=== PATIENT | female | born 1950 | race Caucasian/White ===

== ENCOUNTER → 2017-11-04 | Outpatient (CLI) | payer OTHER ==
[~2017-11-04] MED LIST: ALBU90OI; AZIT250 PO; CLAR500 PO; CLOT10; FLUSAL1005; FLUT.05NI; GUAI100SY; HYDACE5 PO; LITH300C; PRED10 PO; PRED20 PO; PSEU30; RXHYDACE PO; THIO2 PO; TRAZ50
== END ==
LOC: PLD 11:14 → LAB SHORT 11:14
DX: N60.89 Other benign mammary dysplasias of unspecified breast (principal)
CPT/HCPCS: 88304

== ENCOUNTER → 2018-07-18 | Outpatient (CLI) | payer OTHER ==
[2018-07-18 12:11] LABS: BODY FLUID RBC 0.008 (0-0); RBC Count, Synovial Fluid 8000 /mm3 (0-0); WBC Count, Synovial Fluid 343 /mm3 (0-180)
[2018-07-18 12:25] LABS: Body Fluid Crystals NEG (NEGATIVE)
[2018-07-18 12:30] LABS: Color, Synovial Fluid Dark Yellow (None-P Yel)
[2018-07-18 12:31] LABS: Appearance, Synovial Fluid Cloudy (Clear)
[2018-07-18 13:11] LABS: Eos, Synovial Fluid 1 % (0-2); Lymphs, Synovial Fluid 31 % (0-15); Monocytes/Macrophages, Synovia 61 % (0-65); Neutrophils, Synovial Fluid 7 % (0-24)
== END | disposition home or self-care (01) ==
LOC: LAB 11:32 → LAB SHORT 11:32
PROVIDERS: Orthopaedic Surgery
DX: M25.461 Effusion, right knee (principal)
CPT/HCPCS: 87070; 87075; 87205; 89051; 89060

== ENCOUNTER 2018-09-11 07:36 | Inpatient (IN) | payer OTHER ==
[~2018-09-11] VITALS: Ht 172.7 cm; Wt 78.3 kg
[~2018-09-11 07:36] MED LIST changes: -ALBU90OI; +ALBU90OI INH; +B Complex #11 EACH PO; +CALCIUM WITH V1 EACH PO; +DIAZ10 PO; +FLUT1DIS2 INH; +Hydrocodone-Ap1 EA23 PO; +LIDO5TO TOP; -LITH300C; +LITH300C PO; +MELO7.5 PO; +Pravachol40 MG PO; +QUET25 PO; +THERA1 EACH PO; +TIOT18 INH; -TRAZ50; +TRAZ50 PO
--- NOTE | 2018-09-11 09:27 | NUR ---
History, Chart, Medications and Allergies reviewed before start of procedure. Patient confirms NPO status and agrees with scheduled surgery. Patient reports completing Chlorhexadine shower X2 prior to admission to hospital.Surgical site prepped with 2% Chlorhexidine cloth wipe.
--- NOTE | 2018-09-11 10:46 | NUR ---
09/11/18 1046 Alida Potter PT VOIDED PRIOR TO COMING TO THE OR
--- NOTE | 2018-09-11 15:15 | NUR ---
PT ARRIVED TO THE ROOM AT APPROXIMATELY 1310. PT ALERT AND ORIENTED UPON ARRIVAL TO ROOM. FAMILY AT THE BEDSIDE. PT DENIED PAIN, NAUSEA AND VOMITING. PT UNABLE TO MOVE OR FEEL HER TOES. VSS. WILL CONTINUE TO MONITOR.
--- NOTE | 2018-09-11 15:24 | NUR ---
SUICIDE SCREENING PT REPORTS SHE HAS WANTED TO GO TO SLEEP AND NOT WAKE UP RELATED TO PAIN. SHE DENIES SUICIDAL IDEATION.
--- NOTE | 2018-09-11 17:38 | NUR ---
SHIFT SUMMARY PAIN HAS BEEN MANAGED WITH PO AND IV PAIN MEDICATION. PT IS A 1 ASSIST WHEN OOB. SHE WAS ABLE TO WORK WITH THERAPY THIS SHIFT. VSS. WILL MONITOR UNTIL REPORT TO ONCOMING RN.
--- NOTE | 2018-09-11 18:55 | NUR ---
recvd report from previous shift rn adonis, pt sitting up in chair, a/0 x 4, pleasant/cooperative, slight tremor which is pt's baseline
--- NOTE | 2018-09-12 05:13 | NUR ---
shift summary: vss, no acute changes. pt reports mild anxiety, medicated per mar with report of relaxation. pt reports pain controlled per mar at 09/10 on reassessment. pt voided >600 ml clear yellow urine. pt tolerated PO intake with no n/v. pt up to bathroom x 2, ambulated in hallway x 1. operative limb with good cap refill/warmth/color. aquacel and shine wrap c/d/i, no drainage or shadowing. cryotherapy in place while pt in chair or bed. pt educated per schedule of day shift activities and expectations prior to discharge, states understanding.
[2018-09-12 06:24] LABS: Anion Gap 5 mmol/L (6-16); BASOPHILS ABSOLUTE AUTO 0.02 K/mm3 (0.00-0.23); BASOPHILS PERCENT AUTO 0 % (0-2); Blood Urea Nitrogen 14 mg/dL (8-24); CO2, Blood 26 mmol/L (21-32); Calcium, Blood 9.2 mg/dL (8.5-10.1); Chloride, Blood 108 mmol/L (98-108); Creatinine, Blood 0.64 mg/dL (0.40-1.00); EOSINOPHILS ABSOLUTE AUTO 0.07 K/mm3 (0.00-0.68); EOSINOPHILS PERCENT AUTO 1 % (0-6); Glomerular Filtration Rate >60 (60-); Glucose, Blood 122 mg/dL (70-99); Hematocrit 35.3 % (33.0-51.0); Hemoglobin 11.1 g/dL (11.5-16.0); IMMATURE GRAN ABSOLUTE AUTO 0.03 K/mm3 (0.00-0.10); IMMATURE GRAN PERCENT AUTO 0 % (0-1); LYMPHOCYTES ABSOLUTE AUTO 0.48 K/mm3 (0.84-5.20); LYMPHOCYTES PERCENT AUTO 6 % (21-46); MONOCYTES ABSOLUTE AUTO 0.84 K/mm3 (0.16-1.47); MONOCYTES PERCENT AUTO 10 % (4-13); Mean Corpuscular HGB 30.3 pg (26.0-34.0); Mean Corpuscular HGB Conc 31.4 g/dL (31.5-36.5); Mean Corpuscular Volume 96 fL (80-100); Mean Platelet Volume 9.6 fL (9.1-12.4); NEUTROPHILS ABSOLUTE AUTO 7.17 K/mm3 (1.96-9.15); NEUTROPHILS PERCENT AUTO 83 % (41-73); Platelet Count 269 K/mm3 (150-400); Potassium, Blood 4.2 mmol/L (3.5-5.5); RDW Coefficient Variation 12.5 % (11.7-14.2); RDW Standard Deviation 44.5 fL (35.1-46.3); Red Blood Cell Count 3.66 M/mm3 (3.80-5.20); Sodium, Blood 139 mmol/L (136-145); White Blood Cell Count 8.61 K/mm3 (4.00-11.30)
--- NOTE | 2018-09-12 17:26 | NUR ---
PATIENT TRANSFERRED TO [facility] VIA [facility]; REPORT CALLED TO SHADY GRIFFIN AT THIS TIME. FAMILY AWARE.
== END 2018-09-12 17:05 | DRG 470 ==
LOC: ORSCMMR 07:36 → ORD 10:00 → ORSCMMR 10:00 → SURS 13:08 → ORSCMMR 09-12 12:29 → SURS 09-12 12:29
PROVIDERS: ADMIT Orthopaedic Surgery
PROC: 0SRC0J9 Replacement of Right Knee Joint with Synthetic Substitute, Cemented, Open Approach (ICD-10-PCS; principal; 2018-09-12)
DX: M17.11 Unilateral primary osteoarthritis, right knee (principal); Z85.118 Personal history of other malignant neoplasm of bronchus and lung; I10 Essential (primary) hypertension; E78.5 Hyperlipidemia, unspecified; J43.9 Emphysema, unspecified; F31.9 Bipolar disorder, unspecified; Z87.891 Personal history of nicotine dependence
CPT/HCPCS: 36415; 73560-RT; 80048; 85025; 86850; 86900; 86901; 88300; 97110; 97116; 97161; 97530; C1776; J0171; J1100; J1170; J1885; J2250; J2370; J2405; J2704; J2795; J3010; J7120

== ENCOUNTER → 2019-05-05 | Outpatient (CLI) | payer OTHER ==
[2019-05-05 14:59] LABS: Stool Occult Bld Immuno 1 Negative (NEGATIVE); Stool Occult Bld Immuno 2 Negative (NEGATIVE)
== END | disposition home or self-care (01) ==
LOC: LAB 10:44 → LAB SHORT 10:44
PROVIDERS: Internal Medicine Gastroenterology
DX: Z12.11 Encounter for screening for malignant neoplasm of colon (principal)
CPT/HCPCS: G0328

== ENCOUNTER 2019-05-27 22:19 | Emergency (ER) | payer OTHER ==
[~2019-05-27] VITALS: Ht 172.7 cm; Wt 86.6 kg
== END 2019-05-27 23:50 | disposition home or self-care (01) ==
LOC: ER 22:19
DX: S80.01XA Contusion of right knee, initial encounter (principal); J45.909 Unspecified asthma, uncomplicated; Z87.891 Personal history of nicotine dependence; Z79.899 Other long term (current) drug therapy; Z79.51 Long term (current) use of inhaled steroids; X58.XXXA Exposure to other specified factors, initial encounter
CPT/HCPCS: 73562-RT; 99283-25; A9270

== ENCOUNTER 2020-02-22 10:26 | Emergency (ER) | payer OTHER ==
[~2020-02-22] VITALS: Ht 172.7 cm; Wt 79.4 kg
== END 2020-02-22 14:09 | disposition home or self-care (01) ==
LOC: ER 10:26
DX: S09.90XA Unspecified injury of head, initial encounter (principal); M25.551 Pain in right hip; J45.909 Unspecified asthma, uncomplicated; Z88.0 Allergy status to penicillin; Z88.8 Allergy status to other drugs, medicaments and biological substances; Z88.2 Allergy status to sulfonamides; Z79.899 Other long term (current) drug therapy; Z87.891 Personal history of nicotine dependence; W18.30XA Fall on same level, unspecified, initial encounter
CPT/HCPCS: 70450; 99284-25

== ENCOUNTER 2020-03-04 21:59 | Emergency (ER) | payer OTHER ==
[~2020-03-04] VITALS: Ht 172.7 cm; Wt 81.7 kg
[2020-03-04] MEDS ORDERED: Norco 5-325 Ta1 EACH PO (22:39)
== END 2020-03-04 22:38 | disposition home or self-care (01) ==
LOC: ER 21:59
DX: M53.3 Sacrococcygeal disorders, not elsewhere classified (principal); J45.909 Unspecified asthma, uncomplicated; Z88.0 Allergy status to penicillin; Z88.2 Allergy status to sulfonamides; Z88.8 Allergy status to other drugs, medicaments and biological substances; Z79.899 Other long term (current) drug therapy; Z87.891 Personal history of nicotine dependence
CPT/HCPCS: 99281

== ENCOUNTER → 2020-07-22 | Outpatient (CLI) | payer OTHER ==
[~2020-07-22] MED LIST changes: +Norco 5-325 Ta1 EACH PO
[2020-07-22 06:26] LABS: Source, Urine Clean Catch
[2020-07-22 09:33] LABS: Appearance, Urine Clear (Clear); Bilirubin, Urine Neg (Neg); Blood, Urine Neg (Neg); Color, Urine Yellow (P-Yellow); Glucose Qualitative, Urine Neg (Neg); Ketones, Urine Neg (Neg); Leukocyte Esterase, Urine 1+ (Neg); Nitrite, Urine Neg (Neg); Protein, Urine Neg (Neg); Urobilinogen, Urine NORM (Normal)
[2020-07-22 09:54] LABS: Bacteria Rare /hpf; Red Blood Cells, Urine 0-2 /hpf (0-2); Squamous Epithelial Cells Rare /hpf (Few)
== END ==
LOC: LAB SHORT 06:25 → OLS 06:25 → LAB FUT 07-21 18:40
PROVIDERS: Family Medicine
DX: N39.0 Urinary tract infection, site not specified (principal); Z88.0 Allergy status to penicillin; Z88.2 Allergy status to sulfonamides; Z88.8 Allergy status to other drugs, medicaments and biological substances
CPT/HCPCS: 81001; 87077; 87086; 87186

== ENCOUNTER → 2020-12-27 | Outpatient (CLI) | payer OTHER | END | disposition home or self-care (01) | LOC: LAB SHORT 08:14 → LAB 08:14 | DX: L08.89 Other specified local infections of the skin and subcutaneous tissue (principal) | CPT/HCPCS: 88305; 88312 ==

== ENCOUNTER → 2021-06-08 | Outpatient (CLI) | payer OTHER ==
[2021-06-08 16:43] LABS: Appearance, Urine Clear (Clear); Bilirubin, Urine Neg (Neg); Blood, Urine Neg (Neg); Color, Urine Yellow (P-Yellow); Glucose Qualitative, Urine Neg (Neg); Ketones, Urine Neg (Neg); Leukocyte Esterase, Urine 1+ (Neg); Nitrite, Urine Neg (Neg); Protein, Urine Neg (Neg); Urobilinogen, Urine NORM (Normal)
[2021-06-08 17:04] LABS: Bacteria Rare /hpf; Mucus Light (0-Heavy); Red Blood Cells, Urine 0-2 /hpf (0-2); Squamous Epithelial Cells Rare /hpf (Few)
== END | disposition home or self-care (01) ==
LOC: LAB SHORT 09:00
PROVIDERS: Family Medicine
DX: R79.9 Abnormal finding of blood chemistry, unspecified (principal)
CPT/HCPCS: 81001; 87086

== ENCOUNTER 2021-08-11 20:05 | Emergency (ER) | payer OTHER ==
[~2021-08-11] VITALS: Ht 172.7 cm; Wt 65.3 kg
[2021-08-11] MEDS ORDERED: DOXY100 PO (22:55)
== END 2021-08-11 23:13 | disposition home or self-care (01) ==
LOC: ER 20:05
DX: L03.221 Cellulitis of neck (principal); L02.11 Cutaneous abscess of neck; Z88.0 Allergy status to penicillin; Z88.2 Allergy status to sulfonamides; Z88.8 Allergy status to other drugs, medicaments and biological substances; Z79.899 Other long term (current) drug therapy; J45.909 Unspecified asthma, uncomplicated; Z87.891 Personal history of nicotine dependence; Z85.118 Personal history of other malignant neoplasm of bronchus and lung
CPT/HCPCS: 76536; 99283-25; A9270

== ENCOUNTER → 2021-08-16 | Outpatient (CLI) | payer OTHER ==
[~2021-08-16] MED LIST changes: +DOXY100 PO
== END | disposition home or self-care (01) ==
LOC: LAB SHORT 10:30
DX: L72.3 Sebaceous cyst (principal)
CPT/HCPCS: 87070; 87205

== ENCOUNTER → 2021-08-24 | Outpatient (CLI) | payer OTHER ==
[~2021-08-24] MED LIST changes: +Acetaminophen325 M1 PO; +LOPE2C PO; +ONDA4ODT MM; +VANCOCIN HCL250 MG PO; +VISBIOME 112.51 EACH PO
== END | disposition home or self-care (01) ==
LOC: LAB 09:30 → LAB SHORT 09:30
DX: L72.3 Sebaceous cyst (principal)
CPT/HCPCS: 87070; 87205

== ENCOUNTER 2021-08-26 23:05 | Observation (INO) | payer OTHER ==
[~2021-08-26] VITALS: Ht 162.6 cm; Wt 58.5 kg
[~2021-08-26 23:05] MED LIST changes: -Acetaminophen325 M1 PO; -LOPE2C PO; -ONDA4ODT MM; -VANCOCIN HCL250 MG PO; -VISBIOME 112.51 EACH PO
[2021-08-27 01:16] LABS: Hematocrit 36.7 % (33.0-51.0); Hemoglobin 12.1 g/dL (11.5-16.0); Mean Corpuscular HGB 30.6 pg (26.0-34.0); Mean Corpuscular Volume 93 fL (80-100); Mean Platelet Volume 11.4 fL (9.1-12.4); Platelet Count 253 K/mm3 (150-400); RDW Coefficient Variation 12.2 % (11.7-14.2); RDW Standard Deviation 41.3 fL (35.1-46.3); Red Blood Cell Count 3.96 M/mm3 (3.80-5.20); White Blood Cell Count 14.07 K/mm3 (4.00-11.30)
[2021-08-27 01:28] LABS: Alanine Aminotransfer (ALT/SGP 50 U/L (12-78); Albumin, Blood 3.8 g/dL (3.4-5.0); Albumin/Globulin Ratio 1.3 (0.8-1.8); Alk Phos 87 U/L (50-136); Anion Gap 4 mmol/L (6-16); Aspartate Aminotrans (AST/SGOT 26 U/L (12-37); Bilirubin, Total 0.4 mg/dL (0.1-1.0); Blood Urea Nitrogen 21 mg/dL (8-24); Bun/Creatinine Ratio 35.2 (12.0-20.0); CO2, Blood 27 mmol/L (21-32); Calcium, Blood 9.4 mg/dL (8.5-10.1); Chloride, Blood 108 mmol/L (98-108); Glomerular Filtration Rate >60 (60-); Glucose, Blood 125 mg/dL (70-99); Potassium, Blood 4.3 mmol/L (3.5-5.5); Sodium, Blood 139 mmol/L (136-145); Total Protein, Blood 6.8 g/dL (6.4-8.2)
[2021-08-27 01:35] LABS: Source, Urine Clean Catch
[2021-08-27 01:44] LABS: Bilirubin, Urine Neg (Neg); Blood, Urine 2+ (Neg); Glucose Qualitative, Urine Neg (Neg); Ketones, Urine Neg (Neg); Leukocyte Esterase, Urine 3+ (Neg); Nitrite, Urine Neg (Neg); Protein, Urine Neg (Neg); Urobilinogen, Urine NORM (Normal)
[2021-08-27 01:47] LABS: BAND PERCENT MAN 12 % (0-8); BASOPHILS PERCENT MAN 0 % (0-2); EOSINOPHILS ABSOLUTE MAN 0.14 K/mm3 (0.00-0.68); EOSINOPHILS PERCENT MAN 1 % (0-6); LYMPHOCYTES ABSOLUTE MAN 0.28 K/mm3 (0.84-5.20); LYMPHOCYTES PERCENT MAN 2 % (21-46); MONOCYTES PERCENT MAN 10 % (4-13); NEUTROPHILS ABSOLUTE MAN 12.24 K/mm3 (1.96-9.15); SEG NEUTROPHILS PERCENT MAN 75 % (41-73); TOTAL CELLS COUNTED 100
[2021-08-27 01:50] LABS: Appearance, Urine Hazy (Clear); Color, Urine Yellow (P-Yellow)
[2021-08-27 01:51] LABS: Amorphous Light (0-Heavy); Bacteria Many /hpf; Red Blood Cells, Urine 0-2 /hpf (0-2); Squamous Epithelial Cells Not Seen /hpf (Few)
[2021-08-27 03:49] LABS: BASOPHILS ABSOLUTE AUTO 0.03 K/mm3 (0.00-0.23); BASOPHILS PERCENT AUTO 0 % (0-2); EOSINOPHILS ABSOLUTE AUTO 0.01 K/mm3 (0.00-0.68); EOSINOPHILS PERCENT AUTO 0 % (0-6); Hematocrit 35.2 % (33.0-51.0); Hemoglobin 11.6 g/dL (11.5-16.0); IMMATURE GRAN ABSOLUTE AUTO 0.05 K/mm3 (0.00-0.10); IMMATURE GRAN PERCENT AUTO 0 % (0-1); LYMPHOCYTES ABSOLUTE AUTO 0.47 K/mm3 (0.84-5.20); LYMPHOCYTES PERCENT AUTO 3 % (21-46); MONOCYTES ABSOLUTE AUTO 1.11 K/mm3 (0.16-1.47); MONOCYTES PERCENT AUTO 8 % (4-13); Mean Corpuscular HGB 30.5 pg (26.0-34.0); Mean Corpuscular Volume 93 fL (80-100); Mean Platelet Volume 10.9 fL (9.1-12.4); NEUTROPHILS ABSOLUTE AUTO 12.99 K/mm3 (1.96-9.15); NEUTROPHILS PERCENT AUTO 89 % (41-73); Platelet Count 224 K/mm3 (150-400); RDW Coefficient Variation 12.5 % (11.7-14.2); RDW Standard Deviation 42.9 fL (35.1-46.3); White Blood Cell Count 14.66 K/mm3 (4.00-11.30)
--- NOTE | 2021-08-27 06:39 | NUR ---
SHIFT SUMMARY PT WAS A NEW ADMIT DURING THE NIGHT, ARRIVING ON THE FLOOR AT 0420. SHE WAS ADMITTED FOR A UTI AND WEAKNESS WITH PT REPORTING MULTIPLE GLF AT HOME PRIOR TO ADMISSION. SHE IS A&O X 3, 1PA TO THE [facility]. VITAL SIGNS STABLE. NO C/O ACUTE PAIN, NAUSEA OR SOB. NO ACUTE CHANGES IN PT CONDITION NOTED SINCE ADMISSION. WILL CONTINUE TO MONITOR AND TREAT PER EMAR UNTIL HAND OFF TO DAY SHIFT RN.
[2021-08-27 19:22] LABS: Adenovirus F 40/41 Not Detected (NOT DETECT); Astrovirus Not Detected (NOT DETECT); Campylobacter Sp Not Detected (NOT DETECT); Cryptosporidium Not Detected (NOT DETECT); Cyclospora Cayetanensis Not Detected (NOT DETECT); E. Coli O157 Not Detected (NOT DETECT); Entamoeba Histolytica Not Detected (NOT DETECT); Enteroaggregative E. coli-EAEC Not Detected (NOT DETECT); Enteropathogenic E. coli-EPEC Not Detected (NOT DETECT); Enterotoxigenic E. coli-ETEC Not Detected (NOT DETECT); Giardia Lamblia Not Detected (NOT DETECT); Norovirus GI/GII Not Detected (NOT DETECT); Plesiomonas Shigelloides Not Detected (NOT DETECT); Rotavirus A Not Detected (NOT DETECT); Salmonella Sp Not Detected (NOT DETECT); Sapovirus Not Detected (NOT DETECT); Shiga Toxin-prod E. coli-STEC Not Detected (NOT DETECT); Shigella/Enteroin E. coli-EIEC Not Detected (NOT DETECT); Vibrio Cholerae Not Detected (NOT DETECT); Vibrio Sp Not Detected (NOT DETECT); Yersinia Enterocolitica Not Detected (NOT DETECT)
[2021-08-28 05:18] LABS: BASOPHILS ABSOLUTE AUTO 0.04 K/mm3 (0.00-0.23); BASOPHILS PERCENT AUTO 0 % (0-2); EOSINOPHILS ABSOLUTE AUTO 0.07 K/mm3 (0.00-0.68); EOSINOPHILS PERCENT AUTO 1 % (0-6); Hematocrit 34.2 % (33.0-51.0); IMMATURE GRAN ABSOLUTE AUTO 0.05 K/mm3 (0.00-0.10); IMMATURE GRAN PERCENT AUTO 0 % (0-1); LYMPHOCYTES ABSOLUTE AUTO 1.26 K/mm3 (0.84-5.20); LYMPHOCYTES PERCENT AUTO 11 % (21-46); MONOCYTES ABSOLUTE AUTO 1.45 K/mm3 (0.16-1.47); MONOCYTES PERCENT AUTO 13 % (4-13); Mean Corpuscular HGB 30.2 pg (26.0-34.0); Mean Corpuscular HGB Conc 32.2 g/dL (31.5-36.5); Mean Corpuscular Volume 94 fL (80-100); Mean Platelet Volume 10.6 fL (9.1-12.4); NEUTROPHILS PERCENT AUTO 75 % (41-73); Platelet Count 206 K/mm3 (150-400); RDW Coefficient Variation 12.3 % (11.7-14.2); Red Blood Cell Count 3.64 M/mm3 (3.80-5.20); White Blood Cell Count 11.27 K/mm3 (4.00-11.30)
[2021-08-28 05:49] LABS: Anion Gap 3 mmol/L (6-16); Blood Urea Nitrogen 14 mg/dL (8-24); Bun/Creatinine Ratio 25.2 (12.0-20.0); CO2, Blood 26 mmol/L (21-32); Calcium, Blood 9.2 mg/dL (8.5-10.1); Chloride, Blood 111 mmol/L (98-108); Creatinine, Blood 0.56 mg/dL (0.40-1.00); Glomerular Filtration Rate >60 (60-); Glucose, Blood 114 mg/dL (70-99); Potassium, Blood 3.8 mmol/L (3.5-5.5); Sodium, Blood 140 mmol/L (136-145)
--- NOTE | 2021-08-28 06:48 | NUR ---
SHIFT SUMMARY PT IS A 71 Y/O FEMALE, ADMITTED FOR UTI. CURRENTLY IN ENTERIC PRECAUTIONS FOR C-DIFF. PT IS A&O X 3, 1PA TO [facility]. NO C/O ACUTE PAIN, NAUSEA OR SOB. VITAL SIGNS STABLE. NO ACUTE CHANGES IN PT CONDITION NOTED DURING THE NIGHT. WILL CONTINUE TO MONITOR AND TREAT PER EMAR UNTIL HAND OFF TO DAY SHIFT RN.
[2021-08-28 16:01] LABS: Source, Urine Clean Catch
[2021-08-28 16:11] LABS: Bilirubin, Urine Neg (Neg); Blood, Urine 1+ (Neg); Glucose Qualitative, Urine Neg (Neg); Ketones, Urine Neg (Neg); Leukocyte Esterase, Urine 1+ (Neg); Nitrite, Urine Neg (Neg); Protein, Urine Neg (Neg); Specific Gravity, Urine 1.005 (1.003-1.022); Urobilinogen, Urine NORM (Normal)
[2021-08-28 16:18] LABS: Appearance, Urine Hazy (Clear); Color, Urine Pale Yellow (P-Yellow)
[2021-08-28 16:19] LABS: Bacteria Few /hpf; Squamous Epithelial Cells Few /hpf (Few)
--- NOTE | 2021-08-29 05:09 | NUR ---
PT AWAKE THIS MORNING. PT IS ALERT AND ORIENTED X4, NOT MONITORED, ON RA NO C/O SOB. PT IS DOING WELL WALKING INDEPENDENTLY/SBA WITH FWW. PT STILL HAVING DIARRHEA AT THIS TIME BUT NOT FREQUENT. PT DID C/O GENERALIZED PAIN AND SORENESS, MEDICATED PER EMAR. NO C/O N/V. OTHERWISE NO ACUTE EVENTS OVERNIGHT, PT BELONGINGS AND CALL LIGHT WITHIN REACH.
[2021-08-29 05:24] LABS: BASOPHILS ABSOLUTE AUTO 0.05 K/mm3 (0.00-0.23); BASOPHILS PERCENT AUTO 1 % (0-2); EOSINOPHILS ABSOLUTE AUTO 0.21 K/mm3 (0.00-0.68); EOSINOPHILS PERCENT AUTO 3 % (0-6); Hematocrit 34.8 % (33.0-51.0); Hemoglobin 11.2 g/dL (11.5-16.0); IMMATURE GRAN ABSOLUTE AUTO 0.03 K/mm3 (0.00-0.10); IMMATURE GRAN PERCENT AUTO 0 % (0-1); LYMPHOCYTES ABSOLUTE AUTO 1.33 K/mm3 (0.84-5.20); LYMPHOCYTES PERCENT AUTO 17 % (21-46); MONOCYTES ABSOLUTE AUTO 0.97 K/mm3 (0.16-1.47); MONOCYTES PERCENT AUTO 13 % (4-13); Mean Corpuscular HGB 29.9 pg (26.0-34.0); Mean Corpuscular HGB Conc 32.2 g/dL (31.5-36.5); Mean Corpuscular Volume 93 fL (80-100); NEUTROPHILS ABSOLUTE AUTO 5.06 K/mm3 (1.96-9.15); NEUTROPHILS PERCENT AUTO 66 % (41-73); Platelet Count 205 K/mm3 (150-400); RDW Coefficient Variation 12.3 % (11.7-14.2); RDW Standard Deviation 42.6 fL (35.1-46.3); Red Blood Cell Count 3.74 M/mm3 (3.80-5.20); White Blood Cell Count 7.65 K/mm3 (4.00-11.30)
[2021-08-29 06:02] LABS: Alanine Aminotransfer (ALT/SGP 36 U/L (12-78); Albumin/Globulin Ratio 1.1 (0.8-1.8); Alk Phos 60 U/L (50-136); Anion Gap 3 mmol/L (6-16); Aspartate Aminotrans (AST/SGOT 33 U/L (12-37); Bilirubin, Total 0.3 mg/dL (0.1-1.0); Blood Urea Nitrogen 13 mg/dL (8-24); Bun/Creatinine Ratio 23.4 (12.0-20.0); CO2, Blood 26 mmol/L (21-32); Calcium, Blood 9.1 mg/dL (8.5-10.1); Chloride, Blood 113 mmol/L (98-108); Creatinine, Blood 0.56 mg/dL (0.40-1.00); Globulin, Blood 2.8 g/dL (2.2-4.0); Glomerular Filtration Rate >60 (60-); Glucose, Blood 94 mg/dL (70-99); Magnesium, Blood 2.1 mg/dL (1.6-2.4); Phosphorus, Blood 3.2 mg/dL (2.5-4.9); Sodium, Blood 142 mmol/L (136-145); Total Protein, Blood 5.8 g/dL (6.4-8.2)
[2021-08-29] MEDS ORDERED: Acetaminophen325 M1 PO (09:24)
[2021-08-29] MEDS ORDERED: LOPE2C PO (09:25)
[2021-08-29] MEDS ORDERED: ONDA4ODT MM (09:26)
[2021-08-29] MEDS ORDERED: VANCOCIN HCL250 MG PO (09:27)
[2021-08-29] MEDS ORDERED: VISBIOME 112.51 EACH PO (09:28)
--- NOTE | 2021-08-29 12:27 | NUR ---
PT DISCHARGED TO HOME WITH DAUGHTER. IV REMOVED. TRANSFERED TO PERSONAL VEHICLE WITH HOSPITAL W/C.
--- NOTE | 2021-08-29 13:54 | NUR ---
Received referral from nurse clinical care coordinator (Sheila Romero) on 08/28/2021. Patient dishcarged with orders for home health and elected [facility]. Met with patient to further discuss the above. Patient is agreeable to the above. Discussed homebound status definition with patient. Patient verbalized understanding. Discussed what home health is vs what it is not (in home caregivers/housekeeping). Patient verbalized understanding. Discussed the next steps in the process of an initial assessment to determine frequency of visits. Again patient verbalized understanding. Offered a chance for patient to ask questions regarding the above of which there were none. Gathered all supporting documentation for referral (face sheet, face to face, med list, H&P, discharge summary, and most recent PT assessment) and sent to [facility] for review. No further interventions required. Margarita Hanley Referral Liaison
== END 2021-08-29 12:23 | disposition home health service (06) ==
LOC: ER 23:05 → MEDS 23:06
PROVIDERS: Emergency Medicine; Family Medicine; ADMIT Internal Medicine
DX: N39.0 Urinary tract infection, site not specified (principal); A04.72 Enterocolitis due to Clostridium difficile, not specified as recurrent; R29.6 Repeated falls; Z91.81 History of falling; C34.90 Malignant neoplasm of unspecified part of unspecified bronchus or lung; J45.909 Unspecified asthma, uncomplicated; Z87.891 Personal history of nicotine dependence; Z66 Do not resuscitate; Z88.0 Allergy status to penicillin; Z88.2 Allergy status to sulfonamides; Z88.8 Allergy status to other drugs, medicaments and biological substances
CPT/HCPCS: 0097U; 36415; 71045; 80048; 80053; 81001; 83605; 83735; 84100; 85025; 87324; 93005; 93010; 94760; 96374; 96375; 97110; 97116; 97162; 97530; 99285-25; A9270; J0696; J1650; J2405; J7030

== ENCOUNTER → 2021-09-04 | Outpatient (CLI) | payer OTHER ==
[~2021-09-04] MED LIST changes: +Acetaminophen325 M1 PO; +LOPE2C PO; +ONDA4ODT MM; +VANCOCIN HCL250 MG PO; +VISBIOME 112.51 EACH PO
[2021-09-04 15:24] LABS: Source, Urine Voided
[2021-09-04 17:07] LABS: Appearance, Urine Clear (Clear); Bilirubin, Urine Neg (Neg); Blood, Urine Neg (Neg); Color, Urine Yellow (P-Yellow); Glucose Qualitative, Urine Neg (Neg); Ketones, Urine Neg (Neg); Leukocyte Esterase, Urine Neg (Neg); Nitrite, Urine Neg (Neg); Protein, Urine Neg (Neg); Urobilinogen, Urine NORM (Normal)
== END | disposition home or self-care (01) ==
LOC: LAB SHORT 15:21 → LAB 15:21
PROVIDERS: Family Medicine
DX: N39.0 Urinary tract infection, site not specified (principal)
CPT/HCPCS: 81003

== ENCOUNTER → 2021-09-26 | Outpatient (CLI) | payer OTHER ==
[2021-09-26 13:33] LABS: Stool Occult Bld Immuno 1 Negative (NEGATIVE)
== END ==
LOC: LAB 06:30 → LAB SHORT 06:30
PROVIDERS: Nurse Practitioner Family
DX: Z12.11 Encounter for screening for malignant neoplasm of colon (principal)
CPT/HCPCS: G0328

== ENCOUNTER 2021-10-08 18:18 | Inpatient (IN) | payer OTHER ==
[~2021-10-08] VITALS: Ht 172.7 cm; Wt 68.0 kg
[2021-10-08 19:00] LABS: BASOPHILS ABSOLUTE AUTO 0.07 K/mm3 (0.00-0.23); BASOPHILS PERCENT AUTO 1 % (0-2); EOSINOPHILS ABSOLUTE AUTO 0.24 K/mm3 (0.00-0.68); EOSINOPHILS PERCENT AUTO 3 % (0-6); Hematocrit 38.4 % (33.0-51.0); Hemoglobin 12.1 g/dL (11.5-16.0); IMMATURE GRAN ABSOLUTE AUTO 0.03 K/mm3 (0.00-0.10); IMMATURE GRAN PERCENT AUTO 0 % (0-1); LYMPHOCYTES ABSOLUTE AUTO 1.49 K/mm3 (0.84-5.20); LYMPHOCYTES PERCENT AUTO 20 % (21-46); MONOCYTES ABSOLUTE AUTO 0.77 K/mm3 (0.16-1.47); MONOCYTES PERCENT AUTO 10 % (4-13); Mean Corpuscular HGB 29.5 pg (26.0-34.0); Mean Corpuscular HGB Conc 31.5 g/dL (31.5-36.5); Mean Corpuscular Volume 94 fL (80-100); Mean Platelet Volume 10.1 fL (9.1-12.4); NEUTROPHILS ABSOLUTE AUTO 5.01 K/mm3 (1.96-9.15); NEUTROPHILS PERCENT AUTO 66 % (41-73); Platelet Count 279 K/mm3 (150-400); RDW Coefficient Variation 12.4 % (11.7-14.2); RDW Standard Deviation 43.1 fL (35.1-46.3); White Blood Cell Count 7.61 K/mm3 (4.00-11.30)
[2021-10-08 19:22] LABS: Alanine Aminotransfer (ALT/SGP 40 U/L (12-78); Albumin, Blood 3.9 g/dL (3.4-5.0); Albumin/Globulin Ratio 1.3 (0.8-1.8); Alk Phos 108 U/L (50-136); Anion Gap 5 mmol/L (6-16); Aspartate Aminotrans (AST/SGOT 13 U/L (12-37); Bilirubin, Total 0.2 mg/dL (0.1-1.0); Blood Urea Nitrogen 21 mg/dL (8-24); Bun/Creatinine Ratio 26.8 (12.0-20.0); CO2, Blood 25 mmol/L (21-32); Calcium, Blood 9.6 mg/dL (8.5-10.1); Chloride, Blood 109 mmol/L (98-108); Creatinine, Blood 0.78 mg/dL (0.40-1.00); Glomerular Filtration Rate >60 (60-); Glucose, Blood 125 mg/dL (70-99); Potassium, Blood 4.2 mmol/L (3.5-5.5); Sodium, Blood 139 mmol/L (136-145); Total Protein, Blood 6.9 g/dL (6.4-8.2)
[2021-10-08 20:37] LABS: Lithium 0.73 mmol/L (0.60-1.20)
[2021-10-08 22:46] LABS: Adenovirus Not Detected (NOT DETECT); Bordetella pertussis Not Detected (NOT DETECT); Chlamydophila pneumoniae Not Detected (NOT DETECT); Coronavirus 229E Not Detected (NOT DETECT); Coronavirus HKU1 Not Detected (NOT DETECT); Coronavirus NL63 Not Detected (NOT DETECT); Coronavirus OC43 Not Detected (NOT DETECT); Human Metapneumovirus Not Detected (NOT DETECT); Human Rhinovirus/Enterovirus Not Detected (NOT DETECT); Influenza A/2009-H1 Not Detected (NOT DETECT); Influenza A/H1 Not Detected (NOT DETECT); Influenza A/H3 Not Detected (NOT DETECT); Influenza B Not Detected (NOT DETECT); Mycoplasma pneumoniae Not Detected (NOT DETECT); Parainfluenza Virus 1 Not Detected (NOT DETECT); Parainfluenza Virus 2 Not Detected (NOT DETECT); Parainfluenza Virus 3 Not Detected (NOT DETECT); Parainfluenza Virus 4 Not Detected (NOT DETECT); Respiratory Syncytial Virus Not Detected (NOT DETECT); SARS-Cov-2 (COVID-19), BioFire Not Detected (NOT DETECT)
--- NOTE | 2021-10-09 01:00 | NUR ---
TRANSFER NOTE BLAYNE DEGROOT AND JOS RN TOOK REPORT FROM CATHERINE TOWNSEND IN ED VIA PHONE. PATIENT TO ROOM AT 0047. PATIENT USED WALKER TO WALK TO BED/BATHROOM WITH REPORTS OF SLIGHT DIZZINESS. HR SUSTAINING 30-40S. SLOW TO ANSWER QUESTIONS. ZOLL AND ATROPINE AT BEDSIDE. PATIENT REPORTS COMFORT AND UNDERSTANDS HOW TO CALL STAFF FOR ASSISTANCE. OTHERWISE VSS. WILL CONTINUE TO MONITOR FOR CHANGES.
--- NOTE | 2021-10-09 04:45 | NUR ---
UPDATE PHYSICIAN NOTIFIED OF PAUSE OF 3.12. ORDERS FOR CARDIOLOGY CONSULT FOR SINUS FABIOLA W/PAUSE. CONSULT CALLED IN BY THIS RN, SEE EHR. CONSULT ADDED INTO ADM. ATROPINE AND ZOLL AT BEDSIDE. WILL CONT TO MONITOR.
--- NOTE | 2021-10-09 05:56 | NUR ---
SHIFT SUMMARY PATIENT IS A&O X4. PATIENT HAS BEEN RESTING COMFORTABLY IN BED AND DENIES SYMPTOMS OF BRADYCARDIA. HR 30-40S WITH >3 SEC PAUSES. COMPLAINTS OF SLIGHT DIZZINESS WHEN USING BATHROOM. PATIENT'S GAIT IS STEADY WITH WALKER WHEN AMBULATING WITH SBA. SBP 110-120S. DENIES PAIN. O2 SATS >95% ON RA. ATROPINE AND ZOLL AT BEDSIDE WITH PATIENT VERBALIZING SHE IS AGREEABLE TO BEING PACED BY ZOLL IF NECESSARY. PATIENT IS DNR. CARDIOLOGY CONSULT CALLED IN. SCD'S ON BILATERAL CALVES FOR VTE PROPHYLAXIS. 20G RAC IV LINE INTACT AND FLUSHING WELL. PATIENT IS INDEPENDENT WITH ADL'S BUT REQUIRES ASSISTANCE GETTING UP DUE TO DIZZINESS. PT ABLE TO REPOSITION SELF IN BED. BED IN LOWEST POSITION. CALL LIGHT WITHIN REACH. BED ALARM ON.
--- NOTE | 2021-10-09 09:59 | NUR ---
Echocardiogram completed.
--- NOTE | 2021-10-09 13:14 | NUR ---
Patient is sitting on EOB and alert. Her support person, Ileana, is bedside. Pt talks about her battles with cancer and her upcoming surgery to install a pace maker. She then talks at length about her many "why?" questions that haunt her mind and give her anxiety. I explore patient's spiritual belief system and provide theological insights and recitation of scripture that are in line with her Latter Day beliefs. Pt is tearful at times as she shares about her fears going forward in regards to her cancer and not having much in her "tank" for another cancer johnson. She shows me her DNR wrist band and then states the positives and negatives of what DNR means to her on an emotional/spiritual level. I encourage self-care, reinforce helpful attitudes and practices, and provide therapeutic listening, companionship and prayer. Patient responds well and shows signs of increased peace and resolve. She states I feel so good I wish the surgery was today because she feels so ready and encouraged. I will continue to remain available to patient and family.
--- NOTE | 2021-10-09 17:26 | NUR ---
END OF SHIFT: PATIENT HSA BEEN UNCHANGED THROUGH THE DAY STILL SUSTAINING 40-60. DOES HAVE THE OCCASSIONAL PAUSE. HOME MEDS ORDERED BY PROVIDER. PLAN FOR PACEMAKER TOMORROW WILL BE NPO AT 0000 WILL INFORM NIGHT RN. DENIES CHEST PAIN/PRESSURE, OR SOB. DOES FEEL FATIGUED, AND OCCASSIONALLY DIZZY WITH EXERTION. HAS BEEN BEDREST WITH SBA TO THE BATHROOM, INCLUDING FWW. BLOOD PRESSURE HAS BEEN MILDLY ELEVATED. MAINLY WITH EXERTION. HAS HAD A HEALTHY APPETITE AND FLUID INTAKE. DR. KEY HAS THE CONSENT SIGNED WITNESSED BY [facility] ARCHITECTURAL ASSOCIATE. PATIENT IN FULL AGREEMENT WITH PLAN WILL CONTINUE TO MONITOR UNTIL SHIFT CHANGE.
--- NOTE | 2021-10-09 19:40 | NUR ---
ASSUMPTION OF CARE BLAYNE DEGROOT AND JOS RN ASSUMED CARE OF PATIENT AT 1900. REPORT TAKEN FROM MIRELLA TOWNSEND. HR 40S AFTER REPORT. OTHERWISE VSS. PATIENT UP TO BSC WITH STAFF ASSISTANCE WITH REPORTS OF DIZZINESS. PATIENT SAFELY TRANSFERRED VIA PIVOT TRANSFER WITH NO ISSUES. PATIENT CONTINUES TO ASK QUESTIONS REGARDING THE PLAN FOR HER CARE/SURGERY. THERAPEUTIC LISTENING AND INFORMATION GIVEN TO CALM PATIENT. ZOLL AND ATROPINE AT BEDSIDE. WILL CONTINUE TO MONITOR FOR CHANGE IN CONDITION.
--- NOTE | 2021-10-09 22:58 | NUR ---
PT TRANSFER REPORT GIVEN TO CARY ORLANDO AT [facility]. PT TO TRANSPORT TO ROOM 2 IN ICU, ADMITTING PHYSICIAN DR. SALMERON. PT'S PROVIDED WITH PHONE NUMBER TO [facility], AND DIRECTIONS. PT TRANSPORTED BY CARLOS,[employer]. REPORT GIVEN TO CARLOS RN. TRANSFER PACKET PROVIDED TO [facility] RN. NOEL RN AND BLAYNE,STUDENT RN ASSISTED IN TRANSPORT OF PT ONTO HELICOPTER. PT HAS ALL BELONGINGS WITH HER.
--- NOTE | 2021-10-10 04:39 | NUR ---
SHIFT SUMMARY PATIENT IS A&O X4. CALM AND COOPERATIVE WITH CARE. PATIENT HAS BEEN NPO SINCE MIDNIGHT FOR PACER PLACEMENT 10/10. SB ON TELE WITH PAUSES WITH HR 30-50S. ATROPINE, EPI, AND ZOLL AT BEDSIDE. OTHERWISE VITALS ARE STABLE. DENIES SOB. DIZZINESS WITH EXERTION. PATIENT CONTINUES TO ACTIVELY ASK QUESTIONS ABOUT PROCEDURE AND CARE. THERAPEUTIC LISTENING USED TO HELP PATIENT WITH ANXIETY ABOUT PROCEDURE AND CHANGE IN MEDICATION REGIMINE. PATIENT EXPRESSED ANXIETY ABOUT NOT GETTING VALIUM; EXPLAINED TO PATIENT ABOUT HER BRADYCARDIA AND WHY WE NEED TO HOLD IT. PATIENT UNDERSTANDS BUT REMAINS ANXIOUS. PATIENT WAS ABLE TO GET TRAZADONE DOSE THIS PM AND WAS ABLE TO SLEEP WELL DURING THE SHIFT. DENIES ALL PAIN. BED IN LOWEST POSITION AND CALL LIGHT WITHIN REACH. WILL CONTINUE TO MONITOR FOR CHANGES.
--- NOTE | 2021-10-10 06:51 | NUR ---
PATIENT UPDATE [facility] RN'S CAME TO ROOM TO TRANSFER PATIENT FOR PACEMAKER PLACEMENT. PATIENT LEFT UNIT ON 10/10 @ 0650.
--- NOTE | 2021-10-10 07:51 | NUR ---
ASSUMPTION OF CARE: PATIENT WAS TAKEN BEFORE SHIFT TO LABORATORY OPERATIONS COORDINATOR FOR PACEMAKER. NO LARGE CHANGES IN THE NIGHT, WAS STILL BARDYCARDIC, WILL AWAIT FROM LABORATORY OPERATIONS COORDINATOR AND ACCESS.
--- NOTE | 2021-10-10 18:00 | NUR ---
end of shift: patient has had 2 x doses of atx iv. one prior to surgery 1 [id number]. patient has been having improving dizziness, but some pain at the site of the new pacemaker site LCW. tagaderm in place no signs of bleeding swelling or hematoma, patient has had ice, to the area, arm in sling. chest xray showed well positioned pacemaker. patient is having some mild nausea with pain meds, zofran ordered. seems to be helping at this time. patient denies chest pain pressure, or sob at this time. dizziness improving will continue to monitor at this time.
--- NOTE | 2021-10-10 21:10 | NUR ---
ASSUMED CARE OF PATIENT AT APPROXIMATELY 1905 FROM MIRELLA Zaman RN. PATIENT ALERT AND ORIENTED X4; ANXIOUS AT TIMES; PATIENT REPORTS PAIN IN HER LEFT SIDE FROM PACEMAKER SITE AND CHRONIC PAIN IN HER KNEE AT A 4; MEDICATED PER EMAR; ICE PACK PLACE ON CHEST, REPOSISTIONED WITH MULTIPLE PILLOWS; PATIENT REPORTS SHE IS TIRED BECAUSE SHE HAS BEEN UP SINCE SHORTLY AFTER 6 WHEN THEY TOOK HER FOR PACEMAKER. SITE WNL; SMALL AMOUNT OF REDNESS NEAR BOTTOM OF GAUZE; LEFT ARM IN SLING; PATIENT NEEDS TO BE REMINDED ABOUT NOT USING ARM; USES WALKER AT BASELINE AND REPORTS TROUBLE USING WALKER WITH SLING IN PLACE. ATRIAL PACED ON TELEL; OXYGEN SATURATION ABOVE 90% ON ROOM AIR. PIV X2 S/L.
[2021-10-11 04:29] LABS: Hematocrit 38.1 % (33.0-51.0); Hemoglobin 11.9 g/dL (11.5-16.0); Mean Corpuscular HGB 29.3 pg (26.0-34.0); Mean Corpuscular HGB Conc 31.2 g/dL (31.5-36.5); Mean Corpuscular Volume 94 fL (80-100); Mean Platelet Volume 10.2 fL (9.1-12.4); Platelet Count 237 K/mm3 (150-400); RDW Coefficient Variation 12.7 % (11.7-14.2); RDW Standard Deviation 43.8 fL (35.1-46.3); Red Blood Cell Count 4.06 M/mm3 (3.80-5.20); White Blood Cell Count 6.81 K/mm3 (4.00-11.30)
[2021-10-11 04:56] LABS: Alanine Aminotransfer (ALT/SGP 39 U/L (12-78); Albumin, Blood 3.6 g/dL (3.4-5.0); Albumin/Globulin Ratio 1.2 (0.8-1.8); Alk Phos 77 U/L (50-136); Anion Gap 1 mmol/L (6-16); Aspartate Aminotrans (AST/SGOT 12 U/L (12-37); Bilirubin, Total 0.4 mg/dL (0.1-1.0); Blood Urea Nitrogen 15 mg/dL (8-24); Bun/Creatinine Ratio 35.5 (12.0-20.0); CO2, Blood 29 mmol/L (21-32); Calcium, Blood 9.6 mg/dL (8.5-10.1); Chloride, Blood 110 mmol/L (98-108); Creatinine, Blood 0.42 mg/dL (0.40-1.00); Globulin, Blood 2.9 g/dL (2.2-4.0); Glomerular Filtration Rate >60 (60-); Glucose, Blood 93 mg/dL (70-99); Potassium, Blood 4.7 mmol/L (3.5-5.5); Sodium, Blood 140 mmol/L (136-145); Total Protein, Blood 6.5 g/dL (6.4-8.2)
--- NOTE | 2021-10-11 06:23 | NUR ---
PATIENT SLEPT ABOUT SIX HOURS LAST NIGHT. PATIENT REPORTED WAKING UP AT ONE POINT FEELING DIZZY. VITAL SIGNS STABLE AND PATIENT REPORTS MAYBE IT IS BECAUSE OF HER NERVES. AFTER PATIENT WAS NO LONGER DIZZY, SHE AMBULATED THE HALLWAY PCU-ICU LOOP TWICE AND REPORTS FEELING MUCH BETTER TODAY. NO OTHER ACUTE CHANGES.
--- NOTE | 2021-10-11 07:11 | NUR ---
ASSUMED CARE: PT SITTING UP IN BED, INTERACTING WITH STAFF DURING BEDSIDE REPORT. ATRIAL PACED AT 65 ON TELE. SLING TO LEFT ARM. DENIES NEEDS OR CONCERNS AT THIS TIME.
[2021-10-11] MEDS ORDERED: Norco 10-325 T1 EACH PO (09:48)
--- NOTE | 2021-10-11 10:07 | NUR ---
HOSPITALIST CAME TO SEE PT AND WROTE DISCHARGE ORDERS IF OK WITH [employer]. MEDICAL DELIVERY TECHNICIAN LOCATING [employer] TO GIVE DC OK
--- NOTE | 2021-10-11 11:30 | NUR ---
DISCUSSED PT'S DC INSTRUCTIONS AND ACTIVITY PRECAUTIONS IN RELATION TO PACER SITE. ASSISTED AND HAD PT DEMONSTRATE DRESSING WITH ACTIVITY PRECAUTIONS IN PLACE. WENT OVER [employer] REMOTE MONITOR WITH PT AND PROVIDED WITH APPOINTMENT DATES AND NUMBERS TO CALL IF QUESTIONS OR CONCERNS. PT'S FRIEND AT BEDSIDE FOR THIS CONVERSATION. DENIED FURTHER NEEDS OR CONCERNS. ESCORTED OUT VIA WHEELCHAIR BY HOSPITAL STAFF.
== END 2021-10-11 11:18 | disposition home or self-care (01) | DRG 244 ==
LOC: ER 18:18 → PCU 10-09 00:45
PROVIDERS: Emergency Medicine; Internal Medicine; Physician Assistant; ADMIT Family Medicine
PROC: 0JH606Z Insertion of Pacemaker, Dual Chamber into Chest Subcutaneous Tissue and Fascia, Open Approach (ICD-10-PCS; principal; 2021-10-10)
PROC: 02H63JZ Insertion of Pacemaker Lead into Right Atrium, Percutaneous Approach (ICD-10-PCS; 2021-10-10)
PROC: 02HK3JZ Insertion of Pacemaker Lead into Right Ventricle, Percutaneous Approach (ICD-10-PCS; 2021-10-10)
DX: R00.1 Bradycardia, unspecified (principal); I49.5 Sick sinus syndrome; Z66 Do not resuscitate; F31.9 Bipolar disorder, unspecified; Z20.822 Contact with and (suspected) exposure to COVID-19; J45.909 Unspecified asthma, uncomplicated; E78.5 Hyperlipidemia, unspecified; Z85.118 Personal history of other malignant neoplasm of bronchus and lung; M79.89 Other specified soft tissue disorders; I10 Essential (primary) hypertension; I27.20 Pulmonary hypertension, unspecified; Z88.8 Allergy status to other drugs, medicaments and biological substances; Z88.0 Allergy status to penicillin; Z88.2 Allergy status to sulfonamides; Z79.899 Other long term (current) drug therapy; Z86.19 Personal history of other infectious and parasitic diseases; Z90.711 Acquired absence of uterus with remaining cervical stump; Z90.49 Acquired absence of other specified parts of digestive tract; Z87.891 Personal history of nicotine dependence; Z83.6 Family history of other diseases of the respiratory system
CPT/HCPCS: 0202U; 33208; 36415; 71045; 71046; 80053; 80178; 83880; 84484; 85025; 85027; 85379; 93005; 93010; 93306; 99152; 99153; 99285-25; A9270; C1785; C1898; J1580; J1644; J2250; J2405; J3010; J3370; J7030; J7040

== ENCOUNTER 2021-12-05 11:25 | Emergency (ER) | payer OTHER ==
[~2021-12-05] VITALS: Ht 172.7 cm; Wt 68.0 kg
[~2021-12-05 11:25] MED LIST changes: +Norco 10-325 T1 EACH PO
== END 2021-12-05 15:35 | disposition home or self-care (01) ==
LOC: ER 11:25
DX: I73.9 Peripheral vascular disease, unspecified (principal); J45.909 Unspecified asthma, uncomplicated; Z87.891 Personal history of nicotine dependence; Z79.899 Other long term (current) drug therapy; Z95.0 Presence of cardiac pacemaker
CPT/HCPCS: 99283

== ENCOUNTER 2021-12-14 14:34 | Emergency (ER) | payer OTHER ==
[~2021-12-14] VITALS: Ht 172.7 cm; Wt 68.0 kg
== END 2021-12-14 16:49 | disposition home or self-care (01) ==
LOC: ER 14:34
DX: I83.813 Varicose veins of bilateral lower extremities with pain (principal); J45.909 Unspecified asthma, uncomplicated; Z88.0 Allergy status to penicillin; Z88.8 Allergy status to other drugs, medicaments and biological substances; Z88.2 Allergy status to sulfonamides; Z79.899 Other long term (current) drug therapy; Z87.891 Personal history of nicotine dependence
CPT/HCPCS: 99283

== ENCOUNTER 2021-12-23 00:52 | Emergency (ER) | payer OTHER ==
[~2021-12-23] VITALS: Ht 172.7 cm; Wt 68.0 kg
== END 2021-12-23 02:50 | disposition home or self-care (01) ==
LOC: ER 00:52
DX: L53.9 Erythematous condition, unspecified (principal); M79.89 Other specified soft tissue disorders; L85.3 Xerosis cutis; J45.909 Unspecified asthma, uncomplicated; Z95.0 Presence of cardiac pacemaker; Z87.891 Personal history of nicotine dependence; Z79.899 Other long term (current) drug therapy; Z88.0 Allergy status to penicillin; Z88.2 Allergy status to sulfonamides; Z88.8 Allergy status to other drugs, medicaments and biological substances
CPT/HCPCS: 99283

== ENCOUNTER 2022-06-25 20:54 | Emergency (ER) | payer OTHER ==
[~2022-06-25] VITALS: Ht 172.7 cm; Wt 86.2 kg
== END 2022-06-25 21:13 | disposition home or self-care (01) ==
LOC: ER 20:54
DX: R60.0 Localized edema (principal); Z88.0 Allergy status to penicillin; Z88.2 Allergy status to sulfonamides; Z88.8 Allergy status to other drugs, medicaments and biological substances; Z79.899 Other long term (current) drug therapy; Z87.891 Personal history of nicotine dependence
CPT/HCPCS: 99282

== ENCOUNTER 2022-07-15 19:35 | Emergency (ER) | payer OTHER ==
[~2022-07-15] VITALS: Ht 172.7 cm; Wt 86.2 kg
== END 2022-07-15 21:57 | disposition home or self-care (01) ==
LOC: ER 19:35
DX: I87.2 Venous insufficiency (chronic) (peripheral) (principal); J45.909 Unspecified asthma, uncomplicated; Z88.0 Allergy status to penicillin; Z88.8 Allergy status to other drugs, medicaments and biological substances; Z88.2 Allergy status to sulfonamides; Z79.899 Other long term (current) drug therapy; Z87.891 Personal history of nicotine dependence
CPT/HCPCS: 93971

== ENCOUNTER 2022-07-23 18:32 | Emergency (ER) | payer OTHER ==
[~2022-07-23] VITALS: Ht 172.7 cm; Wt 86.2 kg
[2022-07-23 19:05] LABS: BASOPHILS ABSOLUTE AUTO 0.07 K/mm3 (0.00-0.23); BASOPHILS PERCENT AUTO 1 % (0-2); EOSINOPHILS PERCENT AUTO 2 % (0-6); Hematocrit 38.2 % (33.0-51.0); Hemoglobin 12.4 g/dL (11.5-16.0); IMMATURE GRAN ABSOLUTE AUTO 0.03 K/mm3 (0.00-0.10); IMMATURE GRAN PERCENT AUTO 0 % (0-1); LYMPHOCYTES ABSOLUTE AUTO 1.45 K/mm3 (0.84-5.20); LYMPHOCYTES PERCENT AUTO 16 % (21-46); MONOCYTES ABSOLUTE AUTO 0.79 K/mm3 (0.16-1.47); MONOCYTES PERCENT AUTO 9 % (4-13); Mean Corpuscular HGB Conc 32.5 g/dL (31.5-36.5); Mean Corpuscular Volume 89 fL (80-100); Mean Platelet Volume 9.9 fL (9.1-12.4); NEUTROPHILS ABSOLUTE AUTO 6.41 K/mm3 (1.96-9.15); NEUTROPHILS PERCENT AUTO 72 % (41-73); Platelet Count 281 K/mm3 (150-400); RDW Coefficient Variation 12.8 % (11.7-14.2); RDW Standard Deviation 41.6 fL (35.1-46.3); Red Blood Cell Count 4.28 M/mm3 (3.80-5.20); White Blood Cell Count 8.95 K/mm3 (4.00-11.30)
[2022-07-23 19:37] LABS: Albumin, Blood 3.9 g/dL (3.4-5.0); Albumin/Globulin Ratio 1.1 (0.8-1.8); Bilirubin, Total 0.3 mg/dL (0.1-1.0); Bun/Creatinine Ratio 29.6 (12.0-20.0); Calcium, Blood 10.2 mg/dL (8.5-10.1); Creatinine, Blood 0.47 mg/dL (0.40-1.00); Globulin, Blood 3.5 g/dL (2.2-4.0); Potassium, Blood 4.2 mmol/L (3.5-5.5); Total Protein, Blood 7.4 g/dL (6.4-8.2)
[2022-07-23 19:41] LABS: Lithium 1.18 mmol/L (0.60-1.20)
== END 2022-07-23 22:00 | disposition home or self-care (01) ==
LOC: ER 18:32
PROVIDERS: Student in an Organized Health Care Education/Training Program
DX: R25.1 Tremor, unspecified (principal); Z88.0 Allergy status to penicillin; Z88.2 Allergy status to sulfonamides; Z88.8 Allergy status to other drugs, medicaments and biological substances; Z79.899 Other long term (current) drug therapy; Z87.891 Personal history of nicotine dependence
CPT/HCPCS: 36415; 80053; 80178; 85025

== ENCOUNTER 2022-09-13 20:04 | Emergency (ER) | payer OTHER ==
[~2022-09-13] VITALS: Ht 172.7 cm; Wt 87.1 kg
[2022-09-13 22:30] VITALS: BP 140/122
== END 2022-09-13 22:36 | disposition home or self-care (01) ==
LOC: ER 20:04
DX: R04.0 Epistaxis (principal); J45.909 Unspecified asthma, uncomplicated; Z87.891 Personal history of nicotine dependence; Z85.118 Personal history of other malignant neoplasm of bronchus and lung; Z88.2 Allergy status to sulfonamides; Z88.8 Allergy status to other drugs, medicaments and biological substances; Z79.899 Other long term (current) drug therapy
CPT/HCPCS: 99283

== ENCOUNTER 2022-09-28 22:53 | Emergency (ER) | payer OTHER ==
[~2022-09-28] VITALS: Ht 172.7 cm; Wt 88.5 kg
[2022-09-29 03:30] VITALS: BP 142/72
== END 2022-09-29 03:52 | disposition home or self-care (01) ==
LOC: ER 22:53
DX: M79.89 Other specified soft tissue disorders (principal); R60.0 Localized edema; J45.909 Unspecified asthma, uncomplicated; Z85.118 Personal history of other malignant neoplasm of bronchus and lung; Z88.0 Allergy status to penicillin; Z88.8 Allergy status to other drugs, medicaments and biological substances; Z88.2 Allergy status to sulfonamides
CPT/HCPCS: 93971; 96372; 99283-25; J1885

== ENCOUNTER 2023-01-03 20:33 | Emergency (ER) | payer OTHER ==
[~2023-01-03] VITALS: Ht 172.7 cm; Wt 81.2 kg
[2023-01-03 20:34] VITALS: BP 180/93
== END 2023-01-03 21:56 | disposition home or self-care (01) ==
LOC: ER 20:33
DX: S06.0X0A Concussion without loss of consciousness, initial encounter (principal); J45.909 Unspecified asthma, uncomplicated; Z85.118 Personal history of other malignant neoplasm of bronchus and lung; Z88.0 Allergy status to penicillin; Z88.8 Allergy status to other drugs, medicaments and biological substances; Z88.2 Allergy status to sulfonamides; Z88.6 Allergy status to analgesic agent; Z87.891 Personal history of nicotine dependence; Z79.899 Other long term (current) drug therapy; W19.XXXA Unspecified fall, initial encounter
CPT/HCPCS: 70450; 99283-25

== ENCOUNTER → 2023-03-04 | Outpatient (CLI) | payer OTHER | LOC: LAB 16:02 → LAB SHORT 16:02 | DX: N39.0 Urinary tract infection, site not specified (principal) | CPT/HCPCS: 87086 ==

== ENCOUNTER 2023-04-05 01:54 | Emergency (ER) | payer OTHER ==
[~2023-04-05] VITALS: Ht 172.7 cm; Wt 78.9 kg
[2023-04-05 02:25] VITALS: BP 165/85
== END 2023-04-05 03:09 | disposition home or self-care (01) ==
LOC: ER 01:54
DX: I83.12 Varicose veins of left lower extremity with inflammation (principal); I83.11 Varicose veins of right lower extremity with inflammation; Z88.0 Allergy status to penicillin; Z88.8 Allergy status to other drugs, medicaments and biological substances; Z88.2 Allergy status to sulfonamides; Z88.6 Allergy status to analgesic agent; Z79.899 Other long term (current) drug therapy; J45.909 Unspecified asthma, uncomplicated; Z87.891 Personal history of nicotine dependence
CPT/HCPCS: 99283

== ENCOUNTER 2023-04-17 23:34 | Emergency (ER) | payer OTHER ==
[~2023-04-17] VITALS: Ht 172.7 cm; Wt 78.9 kg
[2023-04-17 23:46] VITALS: BP 152/93
== END 2023-04-18 01:33 | disposition home or self-care (01) ==
LOC: ER 23:34
DX: R22.2 Localized swelling, mass and lump, trunk (principal); J45.909 Unspecified asthma, uncomplicated; Z95.0 Presence of cardiac pacemaker; Z88.0 Allergy status to penicillin; Z88.2 Allergy status to sulfonamides; Z88.8 Allergy status to other drugs, medicaments and biological substances; Z79.899 Other long term (current) drug therapy; Z87.891 Personal history of nicotine dependence; Z85.118 Personal history of other malignant neoplasm of bronchus and lung
CPT/HCPCS: 99282

== ENCOUNTER 2023-06-01 21:38 | Emergency (ER) | payer OTHER ==
[~2023-06-01] VITALS: Ht 172.7 cm; Wt 77.1 kg
[2023-06-01 21:41] VITALS: BP 133/88
== END 2023-06-01 22:45 | disposition home or self-care (01) ==
LOC: ER 21:38
DX: R60.0 Localized edema (principal); J45.909 Unspecified asthma, uncomplicated; Z88.0 Allergy status to penicillin; Z88.2 Allergy status to sulfonamides; Z88.6 Allergy status to analgesic agent; Z88.8 Allergy status to other drugs, medicaments and biological substances; Z79.899 Other long term (current) drug therapy; Z87.891 Personal history of nicotine dependence
CPT/HCPCS: 99282

== ENCOUNTER 2023-06-23 18:39 | Emergency (ER) | payer OTHER ==
[~2023-06-23] VITALS: Ht 172.7 cm; Wt 79.4 kg
[2023-06-23 18:47] VITALS: BP 167/109
[2023-06-23] MEDS ORDERED: ELIQUIS5 M2 (19:25)
== END 2023-06-23 20:25 | disposition home or self-care (01) ==
LOC: ER 18:39
DX: R04.0 Epistaxis (principal); J45.909 Unspecified asthma, uncomplicated; I48.91 Unspecified atrial fibrillation; Z87.891 Personal history of nicotine dependence; Z88.8 Allergy status to other drugs, medicaments and biological substances; Z88.0 Allergy status to penicillin; Z88.2 Allergy status to sulfonamides; Z88.6 Allergy status to analgesic agent; Z79.899 Other long term (current) drug therapy; Z79.01 Long term (current) use of anticoagulants
CPT/HCPCS: 30903; 99283-25

== ENCOUNTER 2023-07-20 23:31 | Emergency (ER) | payer OTHER ==
[~2023-07-20] VITALS: Ht 172.7 cm; Wt 79.4 kg
[~2023-07-20 23:31] MED LIST changes: +ELIQUIS5 M2
[2023-07-20 23:55] VITALS: BP 198/93
[2023-07-21] MEDS ORDERED: Voltaren100 GM TOP (00:07)
== END 2023-07-21 00:24 | disposition home or self-care (01) ==
LOC: ER 23:31
DX: I87.8 Other specified disorders of veins (principal); I48.91 Unspecified atrial fibrillation; Z95.0 Presence of cardiac pacemaker; Z79.01 Long term (current) use of anticoagulants; Z79.899 Other long term (current) drug therapy; Z88.0 Allergy status to penicillin; Z88.2 Allergy status to sulfonamides; Z88.6 Allergy status to analgesic agent; Z88.8 Allergy status to other drugs, medicaments and biological substances
CPT/HCPCS: 99283

== ENCOUNTER 2024-01-29 07:24 | Emergency (ER) | payer OTHER ==
[~2024-01-29] VITALS: Ht 167.6 cm; Wt 72.6 kg
[~2024-01-29 07:24] MED LIST changes: +ADVAIR HFA 230-28 GM; +Voltaren100 GM TOP
[2024-01-29 09:11] VITALS: BP 144/71
== END 2024-01-29 09:12 | disposition home or self-care (01) ==
LOC: ER 07:24
DX: R04.0 Epistaxis (principal); I48.91 Unspecified atrial fibrillation; J44.89 Other specified chronic obstructive pulmonary disease
CPT/HCPCS: 99283

== ENCOUNTER 2024-02-26 05:40 | Emergency (ER) | payer OTHER ==
[~2024-02-26] VITALS: Ht 172.7 cm; Wt 86.2 kg
[2024-02-26 06:07] VITALS: BP 124/85
== END 2024-02-26 07:51 | disposition home or self-care (01) ==
LOC: ER 05:40
DX: R04.0 Epistaxis (principal); J44.89 Other specified chronic obstructive pulmonary disease; I48.91 Unspecified atrial fibrillation; Z79.01 Long term (current) use of anticoagulants; Z79.899 Other long term (current) drug therapy; Z79.51 Long term (current) use of inhaled steroids; Z88.0 Allergy status to penicillin; Z88.6 Allergy status to analgesic agent; Z88.8 Allergy status to other drugs, medicaments and biological substances; Z88.2 Allergy status to sulfonamides
CPT/HCPCS: 30901; 99283-25

== ENCOUNTER 2024-03-08 14:52 | Emergency (ER) | payer OTHER ==
[~2024-03-08] VITALS: Ht 172.7 cm; Wt 87.1 kg
[2024-03-08] MEDS ORDERED: ELIQUIS2.5 MG PO (15:06)
[2024-03-08 15:27] LABS: BASOPHILS ABSOLUTE AUTO 0.05 K/mm3 (0.00-0.23); BASOPHILS PERCENT AUTO 1 % (0-2); EOSINOPHILS ABSOLUTE AUTO 0.18 K/mm3 (0.00-0.68); EOSINOPHILS PERCENT AUTO 3 % (0-6); Hemoglobin 12.2 g/dL (11.5-16.0); IMMATURE GRAN ABSOLUTE AUTO 0.04 K/mm3 (0.00-0.10); IMMATURE GRAN PERCENT AUTO 1 % (0-1); LYMPHOCYTES PERCENT AUTO 16 % (21-46); MONOCYTES ABSOLUTE AUTO 0.73 K/mm3 (0.16-1.47); MONOCYTES PERCENT AUTO 11 % (4-13); Mean Corpuscular HGB 28.1 pg (26.0-34.0); Mean Corpuscular HGB Conc 32.1 g/dL (31.5-36.5); Mean Corpuscular Volume 88 fL (80-100); Mean Platelet Volume 9.6 fL (9.1-12.4); NEUTROPHILS ABSOLUTE AUTO 4.82 K/mm3 (1.96-9.15); NEUTROPHILS PERCENT AUTO 70 % (41-73); Platelet Count 334 K/mm3 (150-400); RDW Coefficient Variation 12.9 % (11.7-14.2); RDW Standard Deviation 41.2 fL (35.1-46.3); Red Blood Cell Count 4.34 M/mm3 (3.80-5.20); White Blood Cell Count 6.92 K/mm3 (4.00-11.30)
[2024-03-08] MEDS ORDERED: QUET200 PO (15:37)
[2024-03-08] MEDS ORDERED: ACYC200 PO (15:37)
[2024-03-08] MEDS ORDERED: GABA100 PO (15:38)
[2024-03-08] MEDS ORDERED: CLOBETASOL EMOL15 G1 (15:38)
[2024-03-08 15:39] LABS: Albumin, Blood 3.7 g/dL (3.4-5.0); Bilirubin, Total 0.2 mg/dL (0.1-1.0); Bun/Creatinine Ratio 19.8 (12.0-20.0); Calcium, Blood 9.8 mg/dL (8.5-10.1); Creatinine, Blood 0.61 mg/dL (0.40-1.00); Globulin, Blood 3.7 g/dL (2.2-4.0); Potassium, Blood 4.4 mmol/L (3.5-5.5); Total Protein, Blood 7.4 g/dL (6.4-8.2)
[2024-03-08] MEDS ORDERED: Ipratropium/Albuterol SulF 2.5-0.5MG/3 ML Amp INH ONE (17:15)
[2024-03-08 21:14] VITALS: BP 160/107
== END 2024-03-08 21:52 | disposition home or self-care (01) ==
LOC: ER 14:52
PROVIDERS: Student in an Organized Health Care Education/Training Program
DX: J44.1 Chronic obstructive pulmonary disease with (acute) exacerbation (principal); R91.8 Other nonspecific abnormal finding of lung field; Z88.0 Allergy status to penicillin; Z88.2 Allergy status to sulfonamides; Z88.6 Allergy status to analgesic agent; Z88.8 Allergy status to other drugs, medicaments and biological substances; Z79.01 Long term (current) use of anticoagulants; Z79.899 Other long term (current) drug therapy; Z95.0 Presence of cardiac pacemaker
CPT/HCPCS: 71046; 71260; 80053; 83880; 84484; 85025; 85379; 93005; 93010; 94640; 94664; 99285-25; Q9967

== ENCOUNTER → 2024-03-16 | Outpatient (CLI) | payer OTHER ==
[~2024-03-16] MED LIST changes: +ACYC200 PO; +CLOBETASOL EMOL15 G1; +ELIQUIS2.5 MG PO; +GABA100 PO; +QUET200 PO
[2024-03-16 15:19] LABS: Stool Occult Bld Immuno 1 Negative (NEGATIVE)
== END ==
LOC: LAB 13:53 → LAB SHORT 13:53
PROVIDERS: Family Medicine
DX: Z12.11 Encounter for screening for malignant neoplasm of colon (principal)
CPT/HCPCS: G0328

== ENCOUNTER 2024-04-07 22:55 | Emergency (ER) | payer OTHER ==
[~2024-04-07] VITALS: Ht 172.7 cm; Wt 87.1 kg
[2024-04-07 23:06] VITALS: BP 147/86
== END 2024-04-07 23:37 | disposition home or self-care (01) ==
LOC: ER 22:55
DX: I83.813 Varicose veins of bilateral lower extremities with pain (principal); J44.89 Other specified chronic obstructive pulmonary disease; Z87.891 Personal history of nicotine dependence; Z88.6 Allergy status to analgesic agent; Z88.0 Allergy status to penicillin; Z88.2 Allergy status to sulfonamides; Z88.8 Allergy status to other drugs, medicaments and biological substances; Z88.1 Allergy status to other antibiotic agents; Z79.51 Long term (current) use of inhaled steroids; Z79.899 Other long term (current) drug therapy
CPT/HCPCS: 99283

== ENCOUNTER 2024-05-08 18:18 | Emergency (ER) | payer OTHER ==
[~2024-05-08] VITALS: Ht 172.7 cm; Wt 84.8 kg
[2024-05-08 18:26] VITALS: BP 153/7
[2024-05-08] MEDS ORDERED: Ipratropium/Albuterol SulF 2.5-0.5MG/3 ML Amp INH ONE (18:30)
[2024-05-08 18:57] LABS: BASOPHILS ABSOLUTE AUTO 0.05 K/mm3 (0.00-0.23); BASOPHILS PERCENT AUTO 1 % (0-2); EOSINOPHILS ABSOLUTE AUTO 0.17 K/mm3 (0.00-0.68); EOSINOPHILS PERCENT AUTO 2 % (0-6); Hemoglobin 11.5 g/dL (11.5-16.0); IMMATURE GRAN ABSOLUTE AUTO 0.03 K/mm3 (0.00-0.10); IMMATURE GRAN PERCENT AUTO 0 % (0-1); LYMPHOCYTES ABSOLUTE AUTO 0.61 K/mm3 (0.84-5.20); LYMPHOCYTES PERCENT AUTO 7 % (21-46); MONOCYTES ABSOLUTE AUTO 1.07 K/mm3 (0.16-1.47); MONOCYTES PERCENT AUTO 13 % (4-13); Mean Corpuscular HGB 26.9 pg (26.0-34.0); Mean Corpuscular HGB Conc 31.1 g/dL (31.5-36.5); Mean Corpuscular Volume 86 fL (80-100); Mean Platelet Volume 9.3 fL (9.1-12.4); NEUTROPHILS ABSOLUTE AUTO 6.47 K/mm3 (1.96-9.15); NEUTROPHILS PERCENT AUTO 77 % (41-73); Platelet Count 339 K/mm3 (150-400); RDW Coefficient Variation 13.4 % (11.7-14.2); RDW Standard Deviation 42.3 fL (35.1-46.3); Red Blood Cell Count 4.28 M/mm3 (3.80-5.20)
[2024-05-08 19:20] LABS: Albumin, Blood 2.9 g/dL (3.4-5.0); Albumin/Globulin Ratio 0.6 (0.8-1.8); Bilirubin, Total 0.2 mg/dL (0.1-1.0); Bun/Creatinine Ratio 11.4 (12.0-20.0); Calcium, Blood 9.6 mg/dL (8.5-10.1); Creatinine, Blood 0.53 mg/dL (0.40-1.00); Globulin, Blood 4.6 g/dL (2.2-4.0); Potassium, Blood 4.4 mmol/L (3.5-5.5); Total Protein, Blood 7.5 g/dL (6.4-8.2)
[2024-05-08] MEDS ORDERED: RX Prepack Albuterol 1 PREPACK/6.7 GM INH UD ONE (19:50)
== END 2024-05-08 20:00 | disposition home or self-care (01) ==
LOC: ER 18:18
PROVIDERS: Physician Assistant
DX: J44.9 Chronic obstructive pulmonary disease, unspecified (principal); J45.909 Unspecified asthma, uncomplicated; Z87.891 Personal history of nicotine dependence; Z79.899 Other long term (current) drug therapy; Z79.51 Long term (current) use of inhaled steroids; Z88.0 Allergy status to penicillin; Z88.2 Allergy status to sulfonamides; Z88.6 Allergy status to analgesic agent; Z88.8 Allergy status to other drugs, medicaments and biological substances
CPT/HCPCS: 80053; 85025; 94640; 94664; 99285-25; A9270

== ENCOUNTER 2024-05-16 16:41 | Inpatient (IN) | payer OTHER ==
[~2024-05-16] VITALS: Ht 172.7 cm; Wt 85.2 kg
[2024-05-16] MEDS ORDERED: Ipratropium/Albuterol SulF 2.5-0.5MG/3 ML Amp INH PRN (17:25)
[2024-05-16 17:32] LABS: BASOPHILS ABSOLUTE AUTO 0.05 K/mm3 (0.00-0.23); BASOPHILS PERCENT AUTO 1 % (0-2); EOSINOPHILS ABSOLUTE AUTO 0.15 K/mm3 (0.00-0.68); EOSINOPHILS PERCENT AUTO 2 % (0-6); Hematocrit 35.5 % (33.0-51.0); Hemoglobin 11.3 g/dL (11.5-16.0); IMMATURE GRAN ABSOLUTE AUTO 0.04 K/mm3 (0.00-0.10); IMMATURE GRAN PERCENT AUTO 0 % (0-1); LYMPHOCYTES ABSOLUTE AUTO 0.62 K/mm3 (0.84-5.20); LYMPHOCYTES PERCENT AUTO 7 % (21-46); MONOCYTES ABSOLUTE AUTO 1.01 K/mm3 (0.16-1.47); MONOCYTES PERCENT AUTO 11 % (4-13); Mean Corpuscular HGB 26.7 pg (26.0-34.0); Mean Corpuscular HGB Conc 31.8 g/dL (31.5-36.5); Mean Corpuscular Volume 84 fL (80-100); Mean Platelet Volume 10.6 fL (9.1-12.4); NEUTROPHILS ABSOLUTE AUTO 7.23 K/mm3 (1.96-9.15); NEUTROPHILS PERCENT AUTO 80 % (41-73); Platelet Count 447 K/mm3 (150-400); RDW Coefficient Variation 14.2 % (11.7-14.2); RDW Standard Deviation 43.2 fL (35.1-46.3); Red Blood Cell Count 4.23 M/mm3 (3.80-5.20)
[2024-05-16] MEDS ORDERED: Magnesium Sulf 2 GM/Water 50ML 50 ML IV ONE (17:35)
[2024-05-16] MEDS ORDERED: Albuterol 2.5 MG/3 ML VIAL INH ONE (17:40)
[2024-05-16 18:32] LABS: Albumin, Blood 2.7 g/dL (3.4-5.0); Albumin/Globulin Ratio 0.6 (0.8-1.8); Bilirubin, Total 0.2 mg/dL (0.1-1.0); Bun/Creatinine Ratio 16.2 (12.0-20.0); Calcium, Blood 9.9 mg/dL (8.5-10.1); Creatinine, Blood 0.43 mg/dL (0.40-1.00); Globulin, Blood 4.3 g/dL (2.2-4.0); Potassium, Blood 4.2 mmol/L (3.5-5.5)
[2024-05-16] MEDS ORDERED: Ondansetron HCl 2 MG / ML 2ML Vial IV PRN (20:20)
[2024-05-16] MEDS ORDERED: FLU VACC TS2024-25(6MOS UP)/PF 45 MCG/0.5 ML SYRINGE IM SCH (20:20)
[2024-05-16] MEDS ORDERED: Albuterol 2.5 MG/3 ML VIAL INH PRN (20:20)
[2024-05-16] MEDS ORDERED: Ipratropium/Albuterol SulF 2.5-0.5MG/3 ML Amp INH SCH (20:25)
[2024-05-16] MEDS ORDERED: Diazepam 2 MG Tab PO PRN (20:35)
[2024-05-16] MEDS ORDERED: Mometasone/Formoterol MDI 200/5 mcg 13 GM INH SCH (20:40)
[2024-05-16] MEDS ORDERED: Diazepam 5 MG Tab PO PRN (20:45)
[2024-05-16] MEDS ORDERED: Lithium Carbonate 300 MG TabCR PO SCH (21:00)
[2024-05-16] MEDS ORDERED: Azithromycin 500 MG in NS 250 ML IV SCH (21:00)
[2024-05-16] MEDS ORDERED: Gabapentin 100 MG Cap PO SCH (21:00)
[2024-05-16] MEDS ORDERED: QUEtiapine Fumarate 200 MG Tab PO SCH (21:00)
[2024-05-16] MEDS ORDERED: Apixaban 5 MG Tab PO SCH (21:00)
[2024-05-16] MEDS ORDERED: TraZODone HCl 100 MG Tab PO SCH (21:00)
[2024-05-16 21:22] LABS: Influenza A, PCR NEGATIVE (NEGATIVE); Influenza B, PCR NEGATIVE (NEGATIVE); Resp Syncytial Virus, PCR NEGATIVE (NEGATIVE); SARS-Cov-2 (COVID-19) PCR, MMC NEGATIVE (NEGATIVE)
[2024-05-16 21:35] VITALS: BP 134/74
--- NOTE | 2024-05-16 22:19 | NUR ---
ADMIT NOTE 74 YR OLD FEMALE ADMITTED TO FLOOR FROM THE ED WITH DX OF HYPOXIA. 20 YR HX OF LUNG CA AND COPD. PAST SMOKER. HX ASTHMA, AND A FIB. ED RN REPORTED PT WAS SOB X 1 WK PRIOR TO COMING IN TO ED. ON ARRIVAL, WAS PLACED ON DROPLET PRECAUTIONS UNTIL TESTS RULED OUT POTENTIAL CLU, ETC. TESTS CAME BACK NEGATIVE. PRECAUTIONS DC'D. ALERT AND ORIENTED. LUNG SOUNDS EXP WHEEZE AND DIMINISHED. ORIENTED TO USE OF CALL LIGHT, AGREES TO USE CALL LIGHT IF NEED TO GET OOB. TOLERATES SNACK AND FLUIDS. CALL LIGHT IN REACH, RAILS UP X 2 AND BED IN LOW POSITION FOR SAFETY AND BED ALARM ON. WILL CONT TO MONITOR
[2024-05-17 02:23] VITALS: BP 132/65
--- NOTE | 2024-05-17 03:06 | NUR ---
CYBER SECURITY CONSULTANT SUMMARY VSS. ADMITTED EARLIER IN THE SHIFT WITH DX OF HYPOXIA, AND WITH TESTS PENDING OF POSSIBLE DROPLET PRECAUTIONS, HOWEVER, ABOUT THE TIME OF PT ARRIVAL, TEST RESULTS WERE NEGATIVE AND PRECAUTIONS WERE CANCELLED. ALERT AND ORIENTED. LUNG SOUNDS EXP WHEEZE AND DIMINISHED. O2 AT 2L/MIN PER NC. UP WITH ASSIST, USES FRONT WHEEL WALKER. HAS BEEN RESTING QUIETLY WITH HOB ELEVATED WITH FEW INTERRUPTIONS. CALL LIGHT IN REACH, RAILS UP X 2 AND BED IN LOW POSITION FOR SAFETY. WILL CONT TO MONITOR.
[2024-05-17 04:56] LABS: Hematocrit 34.4 % (33.0-51.0); Hemoglobin 10.5 g/dL (11.5-16.0); Mean Corpuscular HGB 26.1 pg (26.0-34.0); Mean Corpuscular HGB Conc 30.5 g/dL (31.5-36.5); Mean Corpuscular Volume 86 fL (80-100); Mean Platelet Volume 9.2 fL (9.1-12.4); Platelet Count 383 K/mm3 (150-400); RDW Coefficient Variation 13.9 % (11.7-14.2); RDW Standard Deviation 43.5 fL (35.1-46.3); Red Blood Cell Count 4.02 M/mm3 (3.80-5.20); White Blood Cell Count 8.75 K/mm3 (4.00-11.30)
[2024-05-17 05:30] LABS: Bun/Creatinine Ratio 18.3 (12.0-20.0); Creatinine, Blood 0.49 mg/dL (0.40-1.00); Potassium, Blood 4.2 mmol/L (3.5-5.5)
[2024-05-17 07:44] VITALS: BP 119/82
[2024-05-17] MEDS ORDERED: Acyclovir 400 MG Tab PO SCH (09:00)
[2024-05-17] MEDS ORDERED: Lithium Carbonate 300 MG TabCR PO SCH (09:00)
[2024-05-17 15:02] VITALS: BP 142/82
--- NOTE | 2024-05-17 18:03 | NUR ---
PATIENT ALERT AND ORIENTED X4, VITALS STABLE WITH 2L O2 VIA NC. SBA ASSIST TO BATHROOM WITH FOUR WHEEL WALKER. BED ALARM SET, PT ADVISED TO CALL WHEN SHE NEEDS TO GET UP D/T HISTORY OF FALLS. PT TOOK O2 OFF TO GO TO THE BATHROOM, DESATTED TO 83%, O2 REAPPLIED, LONGER TUBING PROVIDED, PT EDUCATED TO KEEP O2 ON AT THIS TIME. NO COMPLAINTS OF PAIN. COOPERATIVE WITH CARE, CALL LIGHT IN REACH, BED IN LOW POSITION.
[2024-05-17 19:22] VITALS: BP 119/69
[2024-05-18 02:06] VITALS: BP 114/73
--- NOTE | 2024-05-18 04:16 | NUR ---
MIS MANAGER SUMMARY VSS. ALERT TO QUESTIONS ASKED. JOKES WITH NURSE AT HS. IV ANTIBIOTICS INFUSED ORDERED. LUNG SOUNDS DIMINISHED WITH SOME WHEEZE. RESP TREATMENTS ADMIN PER RT. O2 PER NC. HOB ELEVATED FOR RESP COMFORT. UP WITH ASSIST TO BATHROOM A FEW TIMES. HAS BEEN RESTING QUIETLY WITH FEW INTERRUPTIONS OTHERWISE. ABLE TO RSPOSITON SELF IN BED FOR COMFORT. CALL LIGHT IN REACH, RAILS UP X 2 AND BED IN LOW POSITION FOR SAFETY. WILL CONT TO MONITOR
[2024-05-18 07:10] VITALS: BP 117/70
[2024-05-18 16:15] VITALS: BP 114/74
--- NOTE | 2024-05-18 17:04 | NUR ---
SHIFT SUMMARY A&OX3-4, CONFUSED AT TIMES, COOPERATIVE. NO ACUTE EVENTS THIS SHIFT. DENIES CP/PRESSURE, HEADACHE, OR DIZZINESS. CURRENTLY ON 3L O2 VIA NC, AND REQUIRES 5L WITH EXERTION AND AMBULATION PER HOME O2 EVAL. THE PLAN WAS FOR PATIENT TO GO HOME TODAY BUT SHE IS NOW STAYING FOR THE NEXT DAY OR TWO TO SEE IF O2 CAN BE DECREASED. PATIENT FIXATED ON MOVING AND GOING FOR WALKS. CURRENTLY SITTING UP IN HER CHAIR, CHAIR ALARM SET, CALL LIGHT WITHIN REACH.
[2024-05-18 19:57] VITALS: BP 119/71
[2024-05-19 04:34] VITALS: BP 139/72
--- NOTE | 2024-05-19 06:52 | NUR ---
Shift Summary No acute changes. Pt placed on O2 monitor as ordered. She remained on 3L t/o the night, 02 sat ranged from 90-96, usually hovering around 94.
[2024-05-19 07:17] VITALS: BP 124/86
[2024-05-19 07:17] LABS: Bun/Creatinine Ratio 14.5 (12.0-20.0); Calcium, Blood 10.2 mg/dL (8.5-10.1); Creatinine, Blood 0.48 mg/dL (0.40-1.00); Potassium, Blood 4.4 mmol/L (3.5-5.5)
[2024-05-19] MEDS ORDERED: Budesonide 0.5 MG/2 ML RESP INH SCH (13:00)
--- NOTE | 2024-05-19 15:58 | NUR ---
SHIFT SUMMARY PT AWAKE DURING SHIFT REPORT, SITTING UP TO EOB. PT UP WITH 1P ASSIST USING FWW THRU OUT THE DAY. PT UP TO BTHRM AND WENT FOR WALKS IN HALLS WITH STAFF. UP TO CHAIR AT FOR MEALS AND WATCHING TV. BED AND CHAIR ALARM USED PT IS FORGETFUL AND IMPULSIVE. PT REMAINS ON 3L O2 VIA N/C AT START OF SHIFT. RT TITRATED DOWN TO 2L THIS AFTERNOON. POSSIBLE D/C TO HOME TOMORROW. [facility] BROUGHT O2 TANKS TO TODAY. PT IS PLEASANT AND GRATEFUL FOR CARE. NO C/O. CALL LT IN REACH.
[2024-05-19 16:13] VITALS: BP 133/77
[2024-05-19 19:46] VITALS: BP 118/67
[2024-05-19] MEDS ORDERED: GuaiFENesin 600 MG TabCR PO SCH (21:00)
[2024-05-19] MEDS ORDERED: Ondansetron 4 MG TAB PO PRN (21:40)
[2024-05-19] MEDS ORDERED: Azithromycin 250 MG Tab PO SCH (21:40)
[2024-05-20 03:57] VITALS: BP 151/78
--- NOTE | 2024-05-20 06:36 | NUR ---
Shift Summary Pt remained on O2 t/o the night. I had to occasionaly turn up O2 to 3L to [facility] sat >= 94 as ordered. Pt would ambulate to the bathroom and when she returned I would plug in the O2 monitor and her oxygen was 83% on 2L. Pt states she did not feel short of breath while in the bathroom or ambulating. Pt's IV came out during day shift and I called the hospitalist who changed her Azithromyacin and Zofran from IV to PO as she may be going home today.
[2024-05-20 07:40] VITALS: BP 113/74
[2024-05-20] MEDS ORDERED: GUAI600T33 PO (13:36)
[2024-05-20] MEDS ORDERED: IPRAT-ALBUT 0.5-3 ML INH (13:38)
[2024-05-20] MEDS ORDERED: ONDA4ODT MM (13:39)
--- NOTE | 2024-05-20 15:13 | NUR ---
DISCHARGE PT AOX4, COOPERATIVE, ABLE TO MAKE NEEDS KNOWN. PT DISCHARGED WITH BELONGINGS AND PAPERWORK IN HAND. TRANSPORT VIA WHEELCHAIR TO PT ENTRANCE WHERE TRANSPORTED BY FRIEND NELSON TO HOME. INFORMED PT TO CALL [facility] WHEN PT GETS HOME FOR HOME O2 WALKTHROUGH. MASTER DEPUTY SHERIFF COURT SECURITY EDUCATED PT ON HOW TO USE OXYGEN TANKS AND OPERATION. NO INJURIES OCCURED DURING DISCHARGE.
== END 2024-05-20 15:18 | disposition home health service (06) | DRG 180 ==
LOC: ER 16:41 → MEDS 16:42 → ENPENDDIS 05-20 11:49 → MEDS 05-20 15:18
PROVIDERS: Emergency Medicine; Internal Medicine; Nurse Practitioner Acute Care; ADMIT Student in an Organized Health Care Education/Training Program
DX: C34.11 Malignant neoplasm of upper lobe, right bronchus or lung (principal); J96.21 Acute and chronic respiratory failure with hypoxia; J44.1 Chronic obstructive pulmonary disease with (acute) exacerbation; I48.20 Chronic atrial fibrillation, unspecified; J98.11 Atelectasis; I73.9 Peripheral vascular disease, unspecified; I48.91 Unspecified atrial fibrillation; F31.9 Bipolar disorder, unspecified; F43.10 Post-traumatic stress disorder, unspecified; Z95.0 Presence of cardiac pacemaker; Z88.0 Allergy status to penicillin; Z88.2 Allergy status to sulfonamides; Z88.8 Allergy status to other drugs, medicaments and biological substances; Z79.01 Long term (current) use of anticoagulants; Z79.899 Other long term (current) drug therapy; Z86.19 Personal history of other infectious and parasitic diseases; Z98.890 Other specified postprocedural states
CPT/HCPCS: 0241U; 36415; 71046; 80048; 80053; 83880; 84145; 84484; 85025; 85027; 93005; 93010; 94640; 94644; 94664; 94760; 94761; 94762; 96365; 96366; 96367; 99285-25; A9270; G0378; J0456; J2405; J3475; J7050

== ENCOUNTER 2024-05-21 20:01 | Emergency (ER) | payer OTHER ==
[~2024-05-21] VITALS: Ht 152.4 cm; Wt 81.7 kg
[~2024-05-21 20:01] MED LIST changes: +GUAI600T33 PO; +IPRAT-ALBUT 0.5-3 ML INH
[2024-05-21] MEDS ORDERED: Albuterol 2.5 MG/3 ML VIAL INH SCH (20:35)
[2024-05-21] MEDS ORDERED: MethylPREDNISolone Sod Succ 125 MG Vial IV ONE (20:35)
[2024-05-21 21:09] LABS: BASOPHILS ABSOLUTE AUTO 0.05 K/mm3 (0.00-0.23); BASOPHILS PERCENT AUTO 1 % (0-2); EOSINOPHILS ABSOLUTE AUTO 0.08 K/mm3 (0.00-0.68); EOSINOPHILS PERCENT AUTO 1 % (0-6); Hematocrit 35.1 % (33.0-51.0); Hemoglobin 10.8 g/dL (11.5-16.0); IMMATURE GRAN ABSOLUTE AUTO 0.04 K/mm3 (0.00-0.10); IMMATURE GRAN PERCENT AUTO 0 % (0-1); LYMPHOCYTES ABSOLUTE AUTO 0.36 K/mm3 (0.84-5.20); LYMPHOCYTES PERCENT AUTO 3 % (21-46); MONOCYTES ABSOLUTE AUTO 1.14 K/mm3 (0.16-1.47); MONOCYTES PERCENT AUTO 11 % (4-13); Mean Corpuscular HGB 25.9 pg (26.0-34.0); Mean Corpuscular HGB Conc 30.8 g/dL (31.5-36.5); Mean Corpuscular Volume 84 fL (80-100); Mean Platelet Volume 9.5 fL (9.1-12.4); NEUTROPHILS ABSOLUTE AUTO 8.97 K/mm3 (1.96-9.15); NEUTROPHILS PERCENT AUTO 84 % (41-73); Platelet Count 443 K/mm3 (150-400); RDW Coefficient Variation 13.7 % (11.7-14.2); RDW Standard Deviation 42.7 fL (35.1-46.3); Red Blood Cell Count 4.17 M/mm3 (3.80-5.20); White Blood Cell Count 10.64 K/mm3 (4.00-11.30)
[2024-05-21 21:26] LABS: Influenza A, PCR NEGATIVE (NEGATIVE); Influenza B, PCR NEGATIVE (NEGATIVE); Resp Syncytial Virus, PCR NEGATIVE (NEGATIVE); SARS-Cov-2 (COVID-19) PCR, MMC NEGATIVE (NEGATIVE)
[2024-05-21 21:30] VITALS: BP 140/78
[2024-05-21 21:35] LABS: Albumin, Blood 2.6 g/dL (3.4-5.0); Albumin/Globulin Ratio 0.6 (0.8-1.8); Bilirubin, Total 0.4 mg/dL (0.1-1.0); Bun/Creatinine Ratio 25.1 (12.0-20.0); Calcium, Blood 10.6 mg/dL (8.5-10.1); Creatinine, Blood 0.36 mg/dL (0.40-1.00); Globulin, Blood 4.7 g/dL (2.2-4.0); Potassium, Blood 4.3 mmol/L (3.5-5.5); Total Protein, Blood 7.3 g/dL (6.4-8.2)
[2024-05-22] MEDS ORDERED: Zithromax250 MG PO (05:58)
[2024-05-22] MEDS ORDERED: CEFP200 PO (05:58)
== END 2024-05-22 01:00 | disposition left against medical advice (07) ==
LOC: ER 20:01
PROVIDERS: Emergency Medicine
DX: J44.1 Chronic obstructive pulmonary disease with (acute) exacerbation (principal); J18.9 Pneumonia, unspecified organism; I48.91 Unspecified atrial fibrillation; F43.10 Post-traumatic stress disorder, unspecified; J44.9 Chronic obstructive pulmonary disease, unspecified; Z87.891 Personal history of nicotine dependence; Z79.899 Other long term (current) drug therapy; Z79.51 Long term (current) use of inhaled steroids; Z88.0 Allergy status to penicillin; Z88.2 Allergy status to sulfonamides; Z88.6 Allergy status to analgesic agent; Z88.8 Allergy status to other drugs, medicaments and biological substances
CPT/HCPCS: 0241U; 71045; 71250; 80053; 83880; 84484; 85025; 93005; 93010; 94644; 94664; 96374; 99285-25; J2919

== ENCOUNTER 2024-05-22 12:34 | Emergency (ER) | payer OTHER ==
[~2024-05-22] VITALS: Ht 172.7 cm; Wt 58.5 kg
[~2024-05-22 12:34] MED LIST changes: +CEFP200 PO; +Zithromax250 MG PO
[2024-05-22 12:36] VITALS: BP 137/95
== END 2024-05-22 13:26 | disposition home or self-care (01) ==
LOC: ER 12:34
DX: J18.9 Pneumonia, unspecified organism (principal); J91.8 Pleural effusion in other conditions classified elsewhere; J96.11 Chronic respiratory failure with hypoxia; R91.8 Other nonspecific abnormal finding of lung field; J44.9 Chronic obstructive pulmonary disease, unspecified; I48.91 Unspecified atrial fibrillation; I73.9 Peripheral vascular disease, unspecified; Z99.81 Dependence on supplemental oxygen; Z85.118 Personal history of other malignant neoplasm of bronchus and lung; Z87.891 Personal history of nicotine dependence; Z88.0 Allergy status to penicillin; Z88.8 Allergy status to other drugs, medicaments and biological substances; Z88.2 Allergy status to sulfonamides; Z88.6 Allergy status to analgesic agent; Z79.01 Long term (current) use of anticoagulants; Z79.899 Other long term (current) drug therapy
CPT/HCPCS: 99283

== ENCOUNTER 2024-05-26 01:11 | Emergency (ER) | payer OTHER ==
[~2024-05-26] VITALS: Ht 170.2 cm; Wt 79.4 kg
[2024-05-26 02:32] VITALS: BP 113/65
== END 2024-05-26 05:00 | disposition home or self-care (01) ==
LOC: ER 01:11
DX: Z99.81 Dependence on supplemental oxygen (principal); J44.9 Chronic obstructive pulmonary disease, unspecified; I48.91 Unspecified atrial fibrillation; F43.10 Post-traumatic stress disorder, unspecified; Z87.891 Personal history of nicotine dependence; Z79.51 Long term (current) use of inhaled steroids; Z79.899 Other long term (current) drug therapy; Z88.2 Allergy status to sulfonamides; Z88.0 Allergy status to penicillin; Z88.5 Allergy status to narcotic agent; Z88.6 Allergy status to analgesic agent; Z88.8 Allergy status to other drugs, medicaments and biological substances
CPT/HCPCS: 99283

== ENCOUNTER 2024-05-30 13:55 | Inpatient (IN) | payer OTHER ==
[~2024-05-30] VITALS: Ht 162.6 cm; Wt 79.7 kg
[2024-05-30 14:42] LABS: BASOPHILS ABSOLUTE AUTO 0.04 K/mm3 (0.00-0.23); BASOPHILS PERCENT AUTO 0 % (0-2); EOSINOPHILS ABSOLUTE AUTO 0.03 K/mm3 (0.00-0.68); EOSINOPHILS PERCENT AUTO 0 % (0-6); Hematocrit 39.5 % (33.0-51.0); Hemoglobin 11.6 g/dL (11.5-16.0); IMMATURE GRAN ABSOLUTE AUTO 0.12 K/mm3 (0.00-0.10); IMMATURE GRAN PERCENT AUTO 1 % (0-1); LYMPHOCYTES ABSOLUTE AUTO 0.37 K/mm3 (0.84-5.20); LYMPHOCYTES PERCENT AUTO 3 % (21-46); MONOCYTES ABSOLUTE AUTO 1.47 K/mm3 (0.16-1.47); MONOCYTES PERCENT AUTO 10 % (4-13); Mean Corpuscular HGB 25.3 pg (26.0-34.0); Mean Corpuscular HGB Conc 29.4 g/dL (31.5-36.5); Mean Corpuscular Volume 86 fL (80-100); Mean Platelet Volume 9.8 fL (9.1-12.4); NEUTROPHILS ABSOLUTE AUTO 12.46 K/mm3 (1.96-9.15); NEUTROPHILS PERCENT AUTO 86 % (41-73); Platelet Count 365 K/mm3 (150-400); RDW Coefficient Variation 14.2 % (11.7-14.2); RDW Standard Deviation 44.4 fL (35.1-46.3); Red Blood Cell Count 4.59 M/mm3 (3.80-5.20); White Blood Cell Count 14.49 K/mm3 (4.00-11.30)
[2024-05-30 15:01] LABS: Albumin, Blood 2.3 g/dL (3.4-5.0); Albumin/Globulin Ratio 0.5 (0.8-1.8); Bilirubin, Total 0.4 mg/dL (0.1-1.0); Bun/Creatinine Ratio 35.3 (12.0-20.0); Creatinine, Blood 0.43 mg/dL (0.40-1.00); Globulin, Blood 4.7 g/dL (2.2-4.0); Potassium, Blood 5.6 mmol/L (3.5-5.5)
[2024-05-30] MEDS ORDERED: FLU VACC TS2024-25(6MOS UP)/PF 45 MCG/0.5 ML SYRINGE IM SCH (16:55)
[2024-05-30] MEDS ORDERED: NS 1,000 ML IV SCH (17:00)
[2024-05-30] MEDS ORDERED: Albuterol 2.5 MG/3 ML VIAL INH PRN (17:05)
[2024-05-30] MEDS ORDERED: Ipratropium/Albuterol SulF 2.5-0.5MG/3 ML Amp INH SCH (17:05)
[2024-05-30] MEDS ORDERED: Diazepam 2 MG Tab PO PRN (17:10)
[2024-05-30] MEDS ORDERED: Azithromycin 500 MG in NS 250 ML IV SCH (17:26)
[2024-05-30 17:32] LABS: Bicarbonate Venous 34.3 mmol/L (24.0-30.0); PCO2 Venous 47.9 mmHg (38-42); pH Blood Venous 7.48 (7.34-7.37)
[2024-05-30 17:40] LABS: Magnesium, Blood 2.2 mg/dL (1.6-2.4)
[2024-05-30 17:41] LABS: Thyroid Stimulating Hormone 1.14 uIU/mL (0.360-4.800)
[2024-05-30] MEDS ORDERED: CefTRIAXone Sodium 1,000 MG in NS 100 ML IV SCH (18:00)
[2024-05-30] MEDS ORDERED: MethylPREDNISolone Sod Succ 125 MG Vial IV SCH (18:00)
[2024-05-30] MEDS ORDERED: QUEtiapine Fumarate 200 MG Tab PO SCH (18:00)
[2024-05-30 18:45] LABS: Lithium 1.16 mmol/L (0.60-1.20)
--- NOTE | 2024-05-30 19:05 | NUR ---
ADMISSION NOTE: PATIENT ARRIVES TO ROOM VIA GURNEY AT 1858 FROM ER FOR DX'S OF SEPSIS c ACUTE HYPOXIC RESP FAILURE. PATIENT ASSISTED TO BED. BEDSIDE REPORTS GIVEN TO CARY HALEY.
[2024-05-30 19:09] VITALS: BP 113/58
[2024-05-30 19:31] LABS: Adenovirus Not Detected (NOT DETECT); Bordetella pertussis Not Detected (NOT DETECT); Chlamydophila pneumoniae Not Detected (NOT DETECT); Coronavirus 229E Not Detected (NOT DETECT); Coronavirus HKU1 Not Detected (NOT DETECT); Coronavirus NL63 Not Detected (NOT DETECT); Coronavirus OC43 Not Detected (NOT DETECT); Human Metapneumovirus Not Detected (NOT DETECT); Human Rhinovirus/Enterovirus Not Detected (NOT DETECT); Influenza A/2009-H1 Not Detected (NOT DETECT); Influenza A/H1 Not Detected (NOT DETECT); Influenza A/H3 Not Detected (NOT DETECT); Influenza B Not Detected (NOT DETECT); Mycoplasma pneumoniae Not Detected (NOT DETECT); Parainfluenza Virus 1 Not Detected (NOT DETECT); Parainfluenza Virus 2 Not Detected (NOT DETECT); Parainfluenza Virus 3 Not Detected (NOT DETECT); Parainfluenza Virus 4 Not Detected (NOT DETECT); Respiratory Syncytial Virus Not Detected (NOT DETECT); SARS-Cov-2 (COVID-19), BioFire Not Detected (NOT DETECT)
[2024-05-30] MEDS ORDERED: Gabapentin 100 MG Cap PO SCH (21:00)
[2024-05-30] MEDS ORDERED: TraZODone HCl 100 MG Tab PO SCH (21:00)
[2024-05-30] MEDS ORDERED: Lithium Carbonate 300 MG Cap PO SCH (21:00)
[2024-05-30] MEDS ORDERED: Apixaban 5 MG Tab PO SCH (21:00)
--- NOTE | 2024-05-30 22:31 | NUR ---
ATTEMPTED TO ADMINISTER PO EVENING MEDS, PT WAS UNABLE TO SWALLOW MEDS ONE AT A TIME, ANSWERED QUESTIONS APPROPRIATELY. MD CALLED, RN WAS TOLD TO HOLD MEDS AND ORDER VBG.
[2024-05-30 22:54] LABS: Base Excess Venous 12.1 mmol/L; Bicarbonate Venous 33.6 mmol/L (24.0-30.0); PCO2 Venous 64.1 mmHg (38-42); pH Blood Venous 7.37 (7.34-7.37)
[2024-05-31 00:04] LABS: Albumin, Blood 2.3 g/dL (3.4-5.0); Albumin/Globulin Ratio 0.5 (0.8-1.8); Bilirubin, Total 0.3 mg/dL (0.1-1.0); Bun/Creatinine Ratio 29.5 (12.0-20.0); Calcium, Blood 10.9 mg/dL (8.5-10.1); Creatinine, Blood 0.51 mg/dL (0.40-1.00); Globulin, Blood 4.3 g/dL (2.2-4.0); Total Protein, Blood 6.6 g/dL (6.4-8.2)
[2024-05-31 03:05] VITALS: BP 123/59
--- NOTE | 2024-05-31 03:36 | NUR ---
SHIFT SUMMARY PT AOX4, COOPERATIVE, ABLE TO MAKE NEEDS KNOWN. PT HAS BEEN GOING IN AND OUT OF CONSCIOUSNESS THROUGHTOUT THE NIGHT. THIS RN HAD A 15 MIN COVERSATION WITH PT AFTER HER BECOMING COHERENT ENOUGH TO TALK TO. CURRENTLY ON BIPAP. DID NOT GIVE EVENING MEDS DO TO PT BEING UNABLE TO SWALLOW MEDS SAFELY, MD INFORMED. USED BEDPAN APPROPRIATELY. ON NS 200ML/HR CURRENTLY. PT DID MENTION SI AND WANTING TO TALK TO DOCTOR ABOUT "JUST GOING", THIS RN INFORMED PT SHE MAY BE THINKING THIS WAY BECAUSE SHE HAD BEEN NONCOMPLIANT WITH HER MEDICATIONS SINCE HER SISTER IN DOCTOR. BED IN LOWEST POSITION, CALL LIGHT WITHIN REACH.
[2024-05-31] MEDS ORDERED: NS 250 ML IV PRN (04:20)
[2024-05-31 05:44] LABS: BASOPHILS ABSOLUTE AUTO 0.02 K/mm3 (0.00-0.23); BASOPHILS PERCENT AUTO 0 % (0-2); EOSINOPHILS PERCENT AUTO 0 % (0-6); Hematocrit 38.1 % (33.0-51.0); Hemoglobin 11.1 g/dL (11.5-16.0); IMMATURE GRAN ABSOLUTE AUTO 0.09 K/mm3 (0.00-0.10); IMMATURE GRAN PERCENT AUTO 1 % (0-1); LYMPHOCYTES ABSOLUTE AUTO 0.15 K/mm3 (0.84-5.20); LYMPHOCYTES PERCENT AUTO 2 % (21-46); MONOCYTES ABSOLUTE AUTO 0.19 K/mm3 (0.16-1.47); MONOCYTES PERCENT AUTO 2 % (4-13); Mean Corpuscular HGB 25.1 pg (26.0-34.0); Mean Corpuscular HGB Conc 29.1 g/dL (31.5-36.5); Mean Corpuscular Volume 86 fL (80-100); NEUTROPHILS ABSOLUTE AUTO 8.53 K/mm3 (1.96-9.15); NEUTROPHILS PERCENT AUTO 95 % (41-73); Platelet Count 413 K/mm3 (150-400); RDW Coefficient Variation 14.4 % (11.7-14.2); RDW Standard Deviation 45.1 fL (35.1-46.3); Red Blood Cell Count 4.43 M/mm3 (3.80-5.20); White Blood Cell Count 8.98 K/mm3 (4.00-11.30)
[2024-05-31 06:17] LABS: Albumin, Blood 2.4 g/dL (3.4-5.0); Albumin/Globulin Ratio 0.5 (0.8-1.8); Bilirubin, Total 0.3 mg/dL (0.1-1.0); Bun/Creatinine Ratio 36.7 (12.0-20.0); Calcium, Blood 11.3 mg/dL (8.5-10.1); Creatinine, Blood 0.41 mg/dL (0.40-1.00); Globulin, Blood 4.5 g/dL (2.2-4.0); Potassium, Blood 4.7 mmol/L (3.5-5.5); Total Protein, Blood 6.9 g/dL (6.4-8.2)
[2024-05-31] MEDS ORDERED: Pravastatin Sodium 20 MG Tab PO SCH (09:00)
[2024-05-31] MEDS ORDERED: Lithium Carbonate 300 MG Cap PO SCH ×2 (09:00→21:03)
[2024-05-31 11:34] LABS: Base Excess Venous 10.6 mmol/L; Bicarbonate Venous 31.8 mmol/L (24.0-30.0); PCO2 Venous 60.2 mmHg (38-42); pH Blood Venous 7.38 (7.34-7.37)
[2024-05-31] MEDS ORDERED: Ondansetron HCl 2 MG / ML 2ML Vial IV PRN (13:45)
[2024-05-31 15:20] VITALS: BP 139/77
[2024-05-31 16:24] VITALS: BP 138/81
--- NOTE | 2024-05-31 16:30 | NUR ---
PATIENT TRANSFERRED TO PCU 5, REPORT CALLED TO CARY CHARLES. PATIENT BELONGINGS SENT AND FRIEND NELSON NOTIFIED OF TRANSFER.
--- NOTE | 2024-05-31 17:00 | NUR ---
TRANSFER SUMMARY PT TRANSFERED TO PCU 05 FROM [facility]. THE PT WAS BROUGHT TO THE ROOM AFTER HER CT. SHE IS ON 4.5L NC W/ SP02 93%. THE PT HAS UNEVEN SHALLOW BREATHING. SHE IS ANXIOUS BUT COOPERAITVE. SHE KNOWNS WHO SHE IS, FAMILY IS, WHERE SHE IS, THE MONTH/YEAR, AND KNOWS WHY SHE CAME TO THE HOSPITAL. THE PT CAN BE FORGETFUL. SHE IS IN THE CHAIR WITH A CHAIR ALARM. RT CALLED TO SET UP BIPAP PER ORDER. ON TELE THE PT IS SR W/ PACED BEATHS. BP STABLE. AN AMPLIFIER STETHLOSCOPE WAS USED TO ASSESS THE PT'S LUNGS. RLL VERY DIMINISHED, RML WITH [id number], RUL WITH EXP-WHE, LEFT LOBES W/ EXP-WHE. CT PENDING
[2024-05-31 17:58] LABS: Base Excess Venous 8.6 mmol/L; Bicarbonate Venous 31.3 mmol/L (24.0-30.0); PCO2 Venous 47.5 mmHg (38-42); pH Blood Venous 7.45 (7.34-7.37)
[2024-05-31 18:43] VITALS: BP 121/69
--- NOTE | 2024-05-31 18:44 | NUR ---
PT REPORTING DIZZINESS. VS STABLE. RT SETTING UP BIPAP.
[2024-05-31 19:57] VITALS: BP 139/71
[2024-05-31 20:02] VITALS: BP 121/71
[2024-06-01 00:53] VITALS: BP 113/67
[2024-06-01 03:58] LABS: Base Excess Venous 11.3 mmol/L; Bicarbonate Venous 34.6 mmol/L (24.0-30.0); PCO2 Venous 33.9 mmHg (38-42)
[2024-06-01 04:04] LABS: BASOPHILS ABSOLUTE AUTO 0.01 K/mm3 (0.00-0.23); BASOPHILS PERCENT AUTO 0 % (0-2); EOSINOPHILS PERCENT AUTO 0 % (0-6); Hematocrit 36.2 % (33.0-51.0); Hemoglobin 10.7 g/dL (11.5-16.0); IMMATURE GRAN ABSOLUTE AUTO 0.09 K/mm3 (0.00-0.10); IMMATURE GRAN PERCENT AUTO 1 % (0-1); LYMPHOCYTES ABSOLUTE AUTO 0.28 K/mm3 (0.84-5.20); LYMPHOCYTES PERCENT AUTO 3 % (21-46); MONOCYTES ABSOLUTE AUTO 0.71 K/mm3 (0.16-1.47); MONOCYTES PERCENT AUTO 6 % (4-13); Mean Corpuscular HGB 25.2 pg (26.0-34.0); Mean Corpuscular HGB Conc 29.6 g/dL (31.5-36.5); Mean Corpuscular Volume 85 fL (80-100); Mean Platelet Volume 9.6 fL (9.1-12.4); NEUTROPHILS ABSOLUTE AUTO 10.12 K/mm3 (1.96-9.15); NEUTROPHILS PERCENT AUTO 90 % (41-73); Platelet Count 380 K/mm3 (150-400); RDW Coefficient Variation 14.6 % (11.7-14.2); RDW Standard Deviation 44.9 fL (35.1-46.3); Red Blood Cell Count 4.24 M/mm3 (3.80-5.20); White Blood Cell Count 11.21 K/mm3 (4.00-11.30)
[2024-06-01 04:17] VITALS: BP 148/104
[2024-06-01 04:22] LABS: Bun/Creatinine Ratio 38.2 (12.0-20.0); Calcium, Blood 10.6 mg/dL (8.5-10.1); Creatinine, Blood 0.39 mg/dL (0.40-1.00); Potassium, Blood 5.3 mmol/L (3.5-5.5)
--- NOTE | 2024-06-01 06:43 | NUR ---
SHIFT SUMMARY ASSUMED CARE OF PT AT 1900. PT A&O4 BUT FORGETFUL AT TIMES. PT COOPERATIVE AND ASKS QUESTIONS. PT REMAINED ON BIPAP OVERNIGHT AND ONLY REMOVED FOR MED ADMINISTRATION. CRITICAL pH OF 7.60 WAS CALLED TO RESIDENT AT APPROX 0400 AND BIPAP REMOVED FROM PT AND 2L NC PLACED. NO OTHER ORDERS GIVEN. STILL PENDING SPUTUM SAMPLE; PT STATES UNABLE TO PROVIDE AT THIS TIME. PT DENIED CP/PRESSURE AND SOB. PT REMAINED IN RECLINER OVERNIGHT AT HER REQUEST. CHAIR ALARM IN PLACE AND CALL LIGHT WITHIN REACH.
[2024-06-01] MEDS ORDERED: Sennosides 8.6 MG Tab PO PRN (09:50)
--- NOTE | 2024-06-01 09:58 | NUR ---
Pt up in chair, call miramontes within reach. On NC. Report given to medical RN.
[2024-06-01 13:03] VITALS: BP 142/76
[2024-06-01 16:44] VITALS: BP 144/70
--- NOTE | 2024-06-01 18:27 | NUR ---
END OF SHIFT SUMMARY: A&Ox3-4; FORGETFUL, BUT EASILY REDIRECTED. PLEASANT AND COOPERATIVE WITH CARE. SHOWS PROFICIENT ABILITY TO USE CALL LIGHT SYSTEM AND REQUIRES SOME REDIRECTION TO PARTICIPATE IN HER OWN CARE, SUCH MOVING TABLE CLOSER TO HER OR ADJUSTING HER PILLOW. CONTINENT OF BOWEL AND BLADDER. 1PA c FWW TO BSC. WORKED WITH PT/OT TODAY. MEDS WHOLE WITH FLUIDS. NO PAIN REPORTED. DID HAVE SOME C/O NAUSEA, RELIEVED WITH PRN IV ONDANSETRON. MULTIPLE FAMILY MEMBERS IN TO VISIT; MAKING PLANS FOR DC AND EVENTUAL PLACEMENT. 4.5LPM/NC (2-4 AT BASELINE). INTERMITTENTLY REQUIRES REMINDERS TO TAKE DEEP BREATHS THROUGH NOSE AND BREATHE OUT THROUGH HER MOUTH SHE WILL DESATURATE WHEN SITTING IN HER CHAIR AND BREATHING SHALLOW. BED IN LOWEST POSITION, CALL LIGHT WITHIN REACH, ALL NEEDS MET. REPORT TO ONCOMING NURSE.
[2024-06-01 19:59] VITALS: BP 143/55
[2024-06-01 20:04] LABS: Acinetobacter baumannii DNA Not Detected copy/mL (NOT DETECT); Adenovirus DNA Not Detected (NOT DETECT); Chlamydia pneumonia Not Detected (NOT DETECT); Enterobacter cloacae DNA Not Detected copy/mL (NOT DETECT); Escherichia coli DNA Not Detected copy/mL (NOT DETECT); Haemophilus influenzae DNA Not Detected copy/mL (NOT DETECT); Human Coronavirus RNA Not Detected (NOT DETECT); Human Metapneumovirus RNA Not Detected (NOT DETECT); Influenza virus A RNA Not Detected (NOT DETECT); Influenza virus B RNA Not Detected (NOT DETECT); Klebsiella aerogenes DNA Not Detected copy/mL (NOT DETECT); Klebsiella oxytoca DNA Not Detected copy/mL (NOT DETECT); Klebsiella pneumoniae DNA Not Detected copy/mL (NOT DETECT); Legionella pneumophila Not Detected (NOT DETECT); Moraxella catarrhalis DNA Not Detected copy/mL (NOT DETECT); Mycoplasma pneumoniae Not Detected (NOT DETECT); Parainfluenza virus RNA Not Detected (NOT DETECT); Proteus sp DNA Not Detected copy/mL (NOT DETECT); Pseudomonas aeruginosa DNA Not Detected copy/mL (NOT DETECT); Respiratory syncytial Vir RNA Not Detected (NOT DETECT); Rhinovirus+Enterovirus RNA Not Detected (NOT DETECT); Serratia marcescens DNA Not Detected copy/mL (NOT DETECT); Staphylococcus aureus DNA Not Detected copy/mL (NOT DETECT); Streptococcus agalactiae DNA Not Detected copy/mL (NOT DETECT); Streptococcus pneumoniae DNA Not Detected copy/mL (NOT DETECT); Streptococcus pyogenes DNA Not Detected copy/mL (NOT DETECT)
[2024-06-01] MEDS ORDERED: Doxycycline Hyclate 100 MG TAB PO SCH (21:00)
[2024-06-01] MEDS ORDERED: MethylPREDNISolone Sod Succ 125 MG Vial IV SCH (21:00)
[2024-06-01 23:59] VITALS: BP 126/69
[2024-06-02 04:03] LABS: BASOPHILS ABSOLUTE AUTO 0.01 K/mm3 (0.00-0.23); BASOPHILS PERCENT AUTO 0 % (0-2); EOSINOPHILS PERCENT AUTO 0 % (0-6); Hematocrit 41.7 % (33.0-51.0); IMMATURE GRAN ABSOLUTE AUTO 0.12 K/mm3 (0.00-0.10); IMMATURE GRAN PERCENT AUTO 1 % (0-1); LYMPHOCYTES ABSOLUTE AUTO 0.24 K/mm3 (0.84-5.20); LYMPHOCYTES PERCENT AUTO 2 % (21-46); MONOCYTES ABSOLUTE AUTO 0.81 K/mm3 (0.16-1.47); MONOCYTES PERCENT AUTO 6 % (4-13); Mean Corpuscular HGB 25.1 pg (26.0-34.0); Mean Corpuscular HGB Conc 28.8 g/dL (31.5-36.5); Mean Corpuscular Volume 87 fL (80-100); Mean Platelet Volume 9.9 fL (9.1-12.4); NEUTROPHILS ABSOLUTE AUTO 12.77 K/mm3 (1.96-9.15); NEUTROPHILS PERCENT AUTO 92 % (41-73); Platelet Count 443 K/mm3 (150-400); RDW Coefficient Variation 14.4 % (11.7-14.2); RDW Standard Deviation 45.7 fL (35.1-46.3); Red Blood Cell Count 4.79 M/mm3 (3.80-5.20); White Blood Cell Count 13.95 K/mm3 (4.00-11.30)
[2024-06-02 04:17] VITALS: BP 117/68
[2024-06-02 04:30] LABS: Albumin, Blood 2.7 g/dL (3.4-5.0); Albumin/Globulin Ratio 0.6 (0.8-1.8); Bilirubin, Total 0.2 mg/dL (0.1-1.0); Bun/Creatinine Ratio 40.5 (12.0-20.0); Calcium, Blood 10.9 mg/dL (8.5-10.1); Creatinine, Blood 0.42 mg/dL (0.40-1.00); Globulin, Blood 4.5 g/dL (2.2-4.0); Potassium, Blood 5.3 mmol/L (3.5-5.5); Total Protein, Blood 7.2 g/dL (6.4-8.2)
--- NOTE | 2024-06-02 06:54 | NUR ---
SHIFT SUMMARY ASSUMED CARE OF PT AT 1900. PT A&O4 BUT CONFUSED AT TIMES. PT'S VSS AND WAS ABLE TO WEAN O2 TO 2LNC FROM 5L. PT ABLE TO EXPRESS NEEDS AND IS COOPERATIVE IN CARE. PT DENIES SOB AND CP/PRESSURE, NO OVERALL PAIN REPORTED EITHER. BED IN LOWEST POSITION AND CALL LIGHT WITHIN REACH.
[2024-06-02 07:30] VITALS: BP 147/77
--- NOTE | 2024-06-02 07:42 | NUR ---
ASSUMED CARE OF PATIENT. SPO2 @ 2LPM/NC. SLEEPING IN RECLINER DURING SHIFT CHANGE REPORT. NO ACUTE NEEDS.
[2024-06-02 11:32] VITALS: BP 129/99
--- NOTE | 2024-06-02 15:04 | NUR ---
END OF SHIFT SUMMARY/TRANSFER FROM [facility] --> [facility] A&Ox3-4; FORGETFUL; IMPAIRED JUDGMENT AND POOR INSIGHT. PLEASANT AND COOPERATIVE WITH CARE. SHOWS PROFICIENT ABILITY TO USE CALL LIGHT DESPITE ATTEMPTS TO CLUSTER CARE. CONTINENT OF BOWEL AND BLADDER. 1PA c FWW TO BATHROOM. MEDS WHOLE WITH FLUIDS. IVs FLUSHED, PATENT AND SALINE LOCKED. CONCERNED OF NAUSEA WHEN RECEIVING MORNING MEDS, AND WAS GIVEN ZOFRAN WITH AM MEDS. DIETARY CHANGED TEXTURE TO MINCED AND MOIST DUE TO LACK OF DENTITION. FAMILY AND FRIENDS IN TO VISIT TODAY. HELPING TO COORDINATE PLAN FOR DISCHARGE. TAPERED TO 2LPM/NC. CONTINUES WITH BREATHING Tx. REPORT TO [facility] LIZZY RN. PATIENT TRASNFERRED TO [facility] VIA WHEELCHAIR WITH CHART AND ALL BELONGINGS.
[2024-06-02 15:55] VITALS: BP 131/76
--- NOTE | 2024-06-02 16:48 | NUR ---
SHIFT SUMMARY PT AXO X 2-3, PLEASANT AND COOPERATIVE WITH CARE. PT TRANSFERRED FROM PCU THIS SHIFT. PT UP WITH 1 ASSIST, FWW AND GB. NO ACUTE CHANGES SINCE TRANSFER. VSS. PT SLEEPS IN CHAIR, CHAIR ALARM ON. CALL LIGHT WITHIN REACH.
[2024-06-02 19:23] VITALS: BP 119/64
[2024-06-02] MEDS ORDERED: Insulin Regular 100 UNIT/ML 10ML Vial SC SCH (21:00)
[2024-06-02 21:36] LABS: Base Excess Venous 14.1 mmol/L; Bicarbonate Venous 35.3 mmol/L (24.0-30.0); PCO2 Venous 70.3 mmHg (38-42); pH Blood Venous 7.36 (7.34-7.37)
[2024-06-03] MEDS ORDERED: LORazepam 2 MG/ML 1ML Injection IV ONE (01:05)
[2024-06-03 02:03] LABS: Base Excess Venous 14.6 mmol/L; Bicarbonate Venous 36.4 mmol/L (24.0-30.0); PCO2 Venous 50.7 mmHg (38-42); pH Blood Venous 7.48 (7.34-7.37)
[2024-06-03 02:08] LABS: BASOPHILS ABSOLUTE AUTO 0.03 K/mm3 (0.00-0.23); BASOPHILS PERCENT AUTO 0 % (0-2); EOSINOPHILS ABSOLUTE AUTO 0.02 K/mm3 (0.00-0.68); EOSINOPHILS PERCENT AUTO 0 % (0-6); Hematocrit 39.5 % (33.0-51.0); Hemoglobin 11.8 g/dL (11.5-16.0); IMMATURE GRAN ABSOLUTE AUTO 0.14 K/mm3 (0.00-0.10); IMMATURE GRAN PERCENT AUTO 1 % (0-1); LYMPHOCYTES ABSOLUTE AUTO 0.42 K/mm3 (0.84-5.20); LYMPHOCYTES PERCENT AUTO 3 % (21-46); MONOCYTES ABSOLUTE AUTO 1.73 K/mm3 (0.16-1.47); MONOCYTES PERCENT AUTO 13 % (4-13); Mean Corpuscular HGB 25.8 pg (26.0-34.0); Mean Corpuscular HGB Conc 29.9 g/dL (31.5-36.5); Mean Corpuscular Volume 86 fL (80-100); Mean Platelet Volume 9.8 fL (9.1-12.4); NEUTROPHILS ABSOLUTE AUTO 11.42 K/mm3 (1.96-9.15); NEUTROPHILS PERCENT AUTO 83 % (41-73); Platelet Count 396 K/mm3 (150-400); RDW Coefficient Variation 14.6 % (11.7-14.2); RDW Standard Deviation 45.5 fL (35.1-46.3); Red Blood Cell Count 4.58 M/mm3 (3.80-5.20); White Blood Cell Count 13.76 K/mm3 (4.00-11.30)
[2024-06-03 02:34] LABS: Albumin, Blood 2.5 g/dL (3.4-5.0); Albumin/Globulin Ratio 0.6 (0.8-1.8); Bilirubin, Total 0.2 mg/dL (0.1-1.0); Bun/Creatinine Ratio 34.5 (12.0-20.0); Calcium, Blood 10.8 mg/dL (8.5-10.1); Creatinine, Blood 0.46 mg/dL (0.40-1.00); Globulin, Blood 4.1 g/dL (2.2-4.0); Potassium, Blood 4.9 mmol/L (3.5-5.5); Total Protein, Blood 6.6 g/dL (6.4-8.2)
[2024-06-03 03:56] VITALS: BP 164/90
[2024-06-03 06:29] LABS: pH Blood Venous 7.52 (7.34-7.37)
[2024-06-03 06:30] LABS: Base Excess Venous 13.2 mmol/L; Bicarbonate Venous 35.7 mmol/L (24.0-30.0); PCO2 Venous 44.8 mmHg (38-42)
[2024-06-03 08:20] VITALS: BP 111/66
--- NOTE | 2024-06-03 08:28 | NUR ---
ELECTRONICS ENGINEERING TECHNICIAN SUMMARY WITH ACUTE CHANGES. PT A/OX3. PT WAS LETHARGIC/SLEEPY AT START OF SHIFT. 3LPM NASAL CANNULA OXYGEN AND ON CONTINUOUS BIOX. PT WAS NOTED TO BE SLIGHTLY TACYNPENIC AND INCREASED WORK OF BREATHING. CALL TO RT--THERAPIST CAME. RT PLACED CPAP ON PT AND REPORTED PT LESS ALERT THAT PREIVOUSLY. ALSO, PT HAS BEEN REFUSING CPAP/NOT TOLERATING WEARING. PT MAKING STATEMENTS LIKE "I FEEL LIKE I AM GOING TO " PT SITTING FORWARD TO BREATHE CALL TO [facility] HOSPITALIST--NEW ORDER FOR VBG. INCREASED CO2 WITH VBG. RT CAME TO BEDSIDE AND CHANGED SETTINGS TO BIPAP WITH 5LPM BLEED IN O2. CALL TO [facility] HOSPITALIST; SEVERO AFFIRMED NEED FOR BIPAP AND REPEAT VBG IN 4 HOURS. PT TOO LETHARGIC TO TAKE 2100 ORAL MEDS--WITHHELD FOR SAFETY. PT WAS TOLERATING WEARING BIPAP MASK BUT STARTED TO WAKE IN A PANIC AND CALLING OUT FOR HELP. PT CONTINUED TO EXPRESS NOT FEELING WELL/AND A SENSE OF DYING. CALL TO [employer] TR[employer] [employer] WRAPPER/DR WAHL TO REPORT PT ANXIOUS BEHAVIOR AND NEXT SET OF VBG RESULTS WHERE CO2 WAS TRENDING DOWN BUT PH TRENDING UP. NEW ORDER FOR 0.5 IV ATIVAN TO TX PT ANXIETY. ORDER TO REPEAT VBG AGAIN. PT CONTINUES TO BE RESTLESS. EXPRESSING FEAR OF DYING. SITTING UP TO SIDE OF BED. OXYGEN NEEDS INCREASING WHEN SWITCHING BACK TO NASAL CANNULA/OXYMASK. PT DYSPNEIC. TRIPODING. DR WAHL AT BEDSIDE TO ASSESS. PER --CONTINUE WITH RECHECK VBG. IF PT NOT TOLERATING BI PAP FACE MASK, PT MAY NEED TO GO TO ICU ON PRECEDEX DRIP. GAVE PT PRN DOSE OF VALIUM TO HELP CALM ANXIETY AND TOLERATE BIPAP MASK. LAST VBG RECHECK SHOWED ANOTHER DROP IN CO2 BUT INCREASE IN PH.
[2024-06-03] MEDS ORDERED: Diazepam 5 MG Tab PO PRN ×2 (08:50→18:20)
[2024-06-03 12:24] LABS: Base Excess Venous 12.3 mmol/L; Bicarbonate Venous 34.4 mmol/L (24.0-30.0); PCO2 Venous 49.9 mmHg (38-42); pH Blood Venous 7.47 (7.34-7.37)
[2024-06-03 16:15] VITALS: BP 145/84
--- NOTE | 2024-06-03 18:22 | NUR ---
SHIFT SUMMARY PT A&OX2-3, FORGETFUL, AND CONFUSED AT TIMES, MANAGED W/ BED AND CHAIR ALARM. VSS, TOLERATING PO, VOIDING, AND DENIED PAIN. PT ON 6L HIGH FLOW NC. TELE NOTIFIED THIS NURSE THAT PT HAD .06 SEC RUN OF SVT IN THE 180S. PT ASYMPTOMATIC. NO OTHER TELE EVENTS OR ACUTE CHANGES. CALL LIGHT WITHIN REACH.
[2024-06-03 20:28] VITALS: BP 117/82
[2024-06-03] MEDS ORDERED: Insulin Regular 100 UNIT/ML 10ML Vial SC SCH (21:00)
[2024-06-04 03:50] VITALS: BP 162/91
[2024-06-04] MEDS ORDERED: Acetaminophen 325 MG TABLET PO PRN (04:55)
[2024-06-04] MEDS ORDERED: HyDROXyzine HCl 10 MG Tab PO PRN (04:55)
[2024-06-04 05:25] LABS: Base Excess Venous 14.5 mmol/L; Bicarbonate Venous 35.9 mmol/L (24.0-30.0); PCO2 Venous 52.2 mmHg (38-42); pH Blood Venous 7.47 (7.34-7.37)
[2024-06-04 05:29] LABS: BASOPHILS ABSOLUTE AUTO 0.04 K/mm3 (0.00-0.23); BASOPHILS PERCENT AUTO 0 % (0-2); EOSINOPHILS ABSOLUTE AUTO 0.05 K/mm3 (0.00-0.68); EOSINOPHILS PERCENT AUTO 0 % (0-6); Hematocrit 41.8 % (33.0-51.0); Hemoglobin 12.4 g/dL (11.5-16.0); IMMATURE GRAN ABSOLUTE AUTO 0.17 K/mm3 (0.00-0.10); IMMATURE GRAN PERCENT AUTO 1 % (0-1); LYMPHOCYTES PERCENT AUTO 2 % (21-46); MONOCYTES PERCENT AUTO 12 % (4-13); Mean Corpuscular HGB 25.5 pg (26.0-34.0); Mean Corpuscular HGB Conc 29.7 g/dL (31.5-36.5); Mean Corpuscular Volume 86 fL (80-100); Mean Platelet Volume 9.7 fL (9.1-12.4); NEUTROPHILS ABSOLUTE AUTO 14.29 K/mm3 (1.96-9.15); NEUTROPHILS PERCENT AUTO 84 % (41-73); Platelet Count 416 K/mm3 (150-400); RDW Coefficient Variation 14.6 % (11.7-14.2); RDW Standard Deviation 45.6 fL (35.1-46.3); Red Blood Cell Count 4.86 M/mm3 (3.80-5.20); White Blood Cell Count 16.95 K/mm3 (4.00-11.30)
--- NOTE | 2024-06-04 05:30 | NUR ---
SHIFT SUMMARY. PATIENT IS A&OX2 WITH FORGETFULNESS AND CONFUSION. PATIENT VERY ANXIOUS TONIGHT-PRN VALIUM GIVEN PER ORDER AND DR. FRANCISCO ORDERED FOR 10MG ATARAX AND TYLENOL FOR MILD PAIN/FEVER. PATIENT NOT CALLING APPROPRIATELY THIS MORNING. PATIENT REPORTS SHE IS VERY ANXIOUS AND FEELS CONFINED-PROVIDED THERAPUETIC COMMUNICATION TO PATIENT. PATIENT UP TO C T/O NIGHT. PATIENT IMPULSIVE TONIGHT-BED ALARM ON WHEN IN BED-PATIENT IS CURRENTLY UP IN CHAIR WITH CHAIR ALARM ON FOR SAFETY. PATIENT AMBULATES c 1P ASSIST, FWW AND GB. CALL LIGHT IN REACH. CARE IS ONGOING.
[2024-06-04 05:58] LABS: Albumin, Blood 2.6 g/dL (3.4-5.0); Albumin/Globulin Ratio 0.6 (0.8-1.8); Bilirubin, Total 0.3 mg/dL (0.1-1.0); Bun/Creatinine Ratio 29.5 (12.0-20.0); Calcium, Blood 11.1 mg/dL (8.5-10.1); Creatinine, Blood 0.48 mg/dL (0.40-1.00); Globulin, Blood 4.2 g/dL (2.2-4.0); Potassium, Blood 4.4 mmol/L (3.5-5.5); Total Protein, Blood 6.8 g/dL (6.4-8.2)
[2024-06-04 07:29] VITALS: BP 125/68
[2024-06-04] MEDS ORDERED: PredniSONE 20 MG Tab PO SCH (09:00)
[2024-06-04 14:37] VITALS: BP 112/86
[2024-06-04] MEDS ORDERED: DEXTROSE 5% IV SCH (16:00)
[2024-06-04] MEDS ORDERED: CLINDAMYCIN PHOSPHATE IV SCH (16:00)
--- NOTE | 2024-06-04 18:34 | NUR ---
SHIFT SUMMARY PT A&OX2-3, VSS, ON, 5L O2, AMB W/ ASSIST, TOLERATING PO, VOIDING, AND DENIED PAIN. PT CONT TO BE IMPULSVE AND REQUIRE REMINDER TO ONLY GET UP W/ STAFF. CHEST X RAY COMPLETE THIS SHIFT, SEE IMAGING. NO OTHER ACUTE CHANGES. CALL LIGHT WITHIN REACH AND BED ALARM ON.
[2024-06-04 20:45] VITALS: BP 129/84
[2024-06-04] MEDS ORDERED: Lactobacil 2-S.Thermo-Bifido 1 1 Cap PO SCH (21:00)
--- NOTE | 2024-06-05 03:17 | NUR ---
HOSPITALIST CONTACTED. PATIENT HAVING INCREASED ANXIETY WITH RESPIRATIONS AT 48-ABLE TO REDIRECT PATIENT SLIGHTLY TO DECREASE RESPIRATIONS TO MID 30'S. DR. FRANCISCO ORDERED FOR IV ATIVAN 1-2MG X1. TO GIVE 1MG-IF NOT AFFECTIVE IN 30-40 MINUTES MAY GIVE AN ADDITIONAL 1MG TO TOTAL 2MG.
[2024-06-05] MEDS ORDERED: LORazepam 2 MG/ML 1ML Injection IV PRN (03:25)
[2024-06-05] MEDS ORDERED: LORazepam 2 MG/ML 1ML Injection IV ONE (03:25)
[2024-06-05 04:49] VITALS: BP 142/115
[2024-06-05 05:06] VITALS: BP 107/82
--- NOTE | 2024-06-05 05:32 | NUR ---
CALL RECEIVED FROM [facility] STEPHY HEDRICK THAT PATIENT HAD A 12 BEAT RUN OF SVT-PATIENT ASYMPTOMATIC. DR. FRANCISCO NOTIFIED AND ORDERED FOR MAGNESIUM AND POTASSIUM TO BE DRAWN WITH MORNING LABS.
[2024-06-05 05:36] LABS: Base Excess Venous 13.8 mmol/L; Bicarbonate Venous 35.7 mmol/L (24.0-30.0); PCO2 Venous 52.5 mmHg (38-42); pH Blood Venous 7.46 (7.34-7.37)
--- NOTE | 2024-06-05 05:58 | NUR ---
PATIENT INCREASED CONFUSION. PATIENT CALLING OUT TO USE THE RESTROOM WHEN PATIENT JUST BACK IN BED FROM USING THE BSC AND URINATING-PATIENT ASSISTED BACK TO BSC AND ASKED MECHANICAL TEST TECHNICIAN "WHAT AM I SUPPOSE TO DO NOW?" PATIENT HAVING DIFFICULTY UNDERSTANDING AND NEEDS REMINDED SEVERAL TIMES. PATIENT HAD REPEAT VBG DONE THIS AM. PATIENT NOT USING CALL LIGHT.
[2024-06-05 06:15] LABS: Magnesium, Blood 2.4 mg/dL (1.6-2.4); Potassium, Blood 4.5 mmol/L (3.5-5.5)
--- NOTE | 2024-06-05 06:52 | NUR ---
SHIFT SUMMARY. PATIENT A&OX2, PATIENT HAS INCREASED CONFUSION TONIGHT FROM THE PREVIOUS NIGHT. PATIENT REPEATS NEEDING TO TELL HER FAMILY THAT SHE CANT KEEP DOING THIS, WHEN ASKED WHAT SHE MEANT PATIENT STATED "TRYING TO FIGURE OUT WHAT IS WRONG WITH ME"- PATIENT WOULD BENEFIT FROM PALLIATIVE CARE CONSULT TO HELP WALK PATIENT THROUGH CURRENT ILLINESS. PATIENT IMPULSIVE AND VERY ACTIVE THIS SHIFT. PATIENT NEEDING TO USE THE RESTROOM FREQUENTLY WITH URINATION APPROX. EVERY OTHER TIME SHE IS UP TO THE BSC THIS SHIFT. PATIENT IS A 1P ASSIST WITH FWW AND GB TO BSC AND CHAIR. PATIENT IS ON 5LPM OXYGEN VIA HIGH FLOW NASAL CANNULA SATTING >92% -WILL TAKE O2 OFF AND DESAT. PATIENT WORE HER BIPAP OFF AND ON T/O NIGHT. BED IS LOCKED IN THE LOWEST POSITION WITH CALL LIGHT IN REACH. CARE IS ONGOING.
[2024-06-05 07:39] VITALS: BP 135/84
[2024-06-05 14:37] VITALS: BP 137/62
--- NOTE | 2024-06-05 18:16 | NUR ---
SHIFT SUMMARY: PATIENT A/OX2, CONFUSED, ANXIOUS AND IMPULSIVE AT TIMES, BUT REDIRECTABLE. PATIENT DENIES CP/PRESSURE, N/V AND DIZZINESS. PATIENT HAS HAD NO EVENTS ON TELE, SR/A-PACED HR IN THE MID 90'S BPM. PATIENT O2 TITRATED BY RT T/O THE DAY, CURRENTLY ON 2 L O2, SATTING 88-92%. PATIENT RECEIVED SCHEDULED IV ABX/MEDS PER EMAR. PATIENT SAT UP IN THE RECLINER CHAIR ON/OFF T/O SHIFT. PATIENT REPORTS PAIN TO R FOOT, MEDICATED X1 c PO TYLENOL c GOOD EFFECT. VITAL SIGNS REVIEWED. PATIENT SAT UP IN THE CHAIR AND HAVING DINNER AT THIS TIME. CHAIR ALARM ON FOR SAFETY. CALL LIGHT IN REACH.
[2024-06-05 19:41] VITALS: BP 122/88
[2024-06-06 03:20] VITALS: BP 122/66
--- NOTE | 2024-06-06 04:11 | NUR ---
SHIFT SUMMARY ADMITTTED FOR RESP FAILURE/SEPSIS. DNR CODE. IV ANTIB RX ARE SCHEDULED. CONCERNS FOR PNEUMONIA. MINCED MOIST DIET. ACHS CBG'S, MED SS. TELEMETRY: NSR @ 94 BPM. 3 LPM O2 VIA NC. BIPAP @ HS. SHE IS CONFUSED AND ANXIOUS. STRICT I&O'S. SHE WAS VERY WEAK THIS SHIFT. SHE DOES HAVE A PACEMAKER. PRN ANXIETY MEDICATION GIVEN AT BEGINNING OF SHIFT. 1 ASSIST TO BSC, THIS SHIFT SHE SEEMED TO NEED 2 ASSIST. HX: RECURRENT LUNG CA, COPD, AFIB, ELIQUIS. SHE LIVES ALONE.
[2024-06-06 07:34] VITALS: BP 110/68
[2024-06-06] MEDS ORDERED: PredniSONE 20 MG Tab PO SCH (09:00)
--- NOTE | 2024-06-06 14:23 | NUR ---
NOTE: THIS RN ROUND ON PATIENT; PATIENT EXPRESSESS TO THIS RN STATED, "YOU KNOW I'M TIRED OF EVERYTHING. I CAN BARELY WALK, I'M NOT DOING A WHOLE LOT ANYMORE AND I'M EXSHAUSTED. I JUST NEED TO STOP EVERYTHING. I'M AFRAID TO . IS THERE ANY PILL YOU CAN GIVE ME TO PUT ME TO SLEEP AND ." PATIENT IS A/O TO SELF AND PLACED ONLY, CONFUSED AND ANXIOUS AT TIMES. THIS RN ASKED THE PATIENT IF THERE ARE ANY PERSON THAT THIS RN CAN TALK TO AND MAKE A DECISION ON HER BEHALF. PATIENT REPLIED, "MY SISTER SHIVA DAMON AND MY NEPHEW." NOTIFIED DR. SMITH. PALLIATIVE CONSULT IN PLACED AND SPOKE TO GWENDOLYN, PALLIATIVE RN REGARDING THIS CONCERNED.
[2024-06-06 17:26] LABS: International Normalized Ratio 1.02; Prothrombin Time Results 10.9 Sec (9.7-11.5)
--- NOTE | 2024-06-06 17:28 | NUR ---
MET WITH PATIENTS FAMILY PER RN REQUEST. FAMILY EXPRESSED FRUSTRATION WITH THE LACK OF COMMUNICATION. THEY WERE UNDER THE IMPRESSION THAT JOHNATHAN WAS BEING DISCHARGED HOME TODAY AND WHEN THEY ARRIVE SHE IS CONFUSED AND THEY HAVE NOT SEEN HER GET OUT OF BED. WE DISCUSSED THE EFFECT THAT STEROIDS HAVE ON HER. SHE IS EXPERIENCING ACUTE CONFUSION DUE TO THE STEROIDS PER DR. SMITH. THIS WAS EXPECTED THE PATIENT EXPRESSED THIS AT HER LAST HOSPITILIZATION BUT WEIGHING RISKS VS BENIFITS TO REDUCE INFLAMATION AND IMPROVE RESPRATORY STATUS STEROIDS WERE GIVEN. SHE IS NOT ON PO MEDICATION AND PENDING HER IMPROVMENT WILL TAPER DOSE APPROPRIATE. FAMILY ALSO EXPRESSED CONCERNS ABOUT HER SNF RECOMENDATIONS THEY HEARD THAT SNF WAS NOT BEING RECOMENDED AT THIS POINT BUT FEEL THE PATIENT IS NO WHERE NEAR HER BASELINE WITH MOBILITY. THEY HAVE CABLE TENDER MEDICADE IN PROCESS AND ARE LOOKING FOR CABLE TENDER PLACMENT AFTER DISCHARGE. THEY EXPRESSED THAT THEY CAME TODAY AND WERE TOLD BY STAFF THAT THEY NEEDED TO MAKE DECISIONS ON HER BEHALF ABOUT GOALS OF CARE BUT DO NOT FEEL IT IS APPROPRIATE SHE IS ACUTLY CONFUSED. PATIENT HAS HAD EPISODES OF SI IN THE PAST. FAMILY EXPRESSED CONCERNS ABOUT WHAT WAS BEING DISCUSSED INFRONT OF THE PATIENT DUE TO HER CONFUSION AND PSYCH HISTORY WITH BIPOLAR DISORDER. DISCUSSED WITH BEDSIDE RN. FAMILY IS WILLING TO SUPPORT THE PATIENTS CHOICES WHEN SHE IS MORE STABLE WITH HER MENTATION. THEY REPORT THAT STATMENTS SHE MADE ABOUT WANTING TO BE "DONE" AND "TAKING A PILL TO END THINGS" WERE LIKLY MADE DUE TO HER CONFUSION AND UNDERLYING PSYCOLOGICAL STATUS. COORDINATED WITH PROVIDER TO ENSURE FAMILY WILL BE HERE DURING ROUNDS SO THEY ARE TOUCHING BASE WITH THE DOCTOR. PATION RECIEVED RADIATION FOR LUNG CANCER SHE HAS COMPLETED THAT COURSE, IS NOT WANTING CHEMO, AND WILL HAVE A FOLLOW UP IN THREE MONTHES. ENCOURAGED BEDSIDE RN TO GIVE HYDROXIZINE FOR AGITATION. UPON ASSESSMENT ASSISTED PATIENT TO BEDPAN. SHE IS PLESANT AND COOPERATIVE. SHE IS FOLLOWING DIRECTIONS, BUT APPEARS TO HAVE SOME CONFUSION.
--- NOTE | 2024-06-06 18:23 | NUR ---
SHIFT SUMMARY: PATIENT A/OX2, CONFUSED AND ANXIOUS AT TIMES, BUT EASILY REDIRECTABLE. PATIENT WEARS BIPAP FOR ABOUT 4 HRS AND CHANGED TO NC 4L, SATTING 89-94%. PATIENT RECEIVED SCHEDULED IV ABX/SCHEDULED MEDS PER EMAR. PATIENT FAMILY CAME IN FOR VISIT, UPDATES GIVEN. PALLIATIVE RNGWENDOLYN SPOKE TO FAMILY FOR AN HOUR REGARDING PLAN OF CARE. FAMILY VERBALIZED UNDERSTANDING AND NO FURTHER QUESTIONS AT THIS TIME. PATIENT CONT/INCON OF BLADDER, USES BEDPAN AND ATTENDS CHANGED PRN. VITAL SIGNS REVIEWED. BED ALARM ON FOR SAFETY. CALL LIGHT IN REACH.
[2024-06-06 19:29] VITALS: BP 104/68
[2024-06-07 03:14] LABS: PCO2 Arterial 59.6 mmHg (35-45); PO2 Arterial 65.4 mmHg (80-100); pH Blood Arterial 7.42 (7.35-7.45)
[2024-06-07 03:19] VITALS: BP 157/88
--- NOTE | 2024-06-07 04:19 | NUR ---
SHIFT SUMMARY ADMITTED FOR PNEUMONIA/SEPSIS. DNR CODE. ANTIB RX ARE SCHEDULED. THERAPEUTIC THORACENTESIS PLANNED FOR TODAY. 3 LPM O2 VIA NC DURING AM, BIPAP @ HS. SHE IS CONFUSED. SHE CALLS OUT FREQUENTLY. MINCED MOIST DIET. ACHS CBG'S - MEDIUM SS. TELEMETRY: NSR @ 94 BPM. STRICT I&O'S. TODD IS HELD FOR THORA PROCEDURE TODAY. SHE DOES HAVE A PACEMAKER. SHE SEES ONCOLOGY DR. COTTO OUTPT, AND RECENTLY COMPLETED RADIATION. HX OF AFIB, RECURRENT LUNG CANCER, PTSD/BIPOLAR, COPD.
[2024-06-07 05:46] LABS: Hematocrit 39.2 % (33.0-51.0); Hemoglobin 11.4 g/dL (11.5-16.0); Mean Corpuscular HGB 25.2 pg (26.0-34.0); Mean Corpuscular HGB Conc 29.1 g/dL (31.5-36.5); Mean Corpuscular Volume 87 fL (80-100); Mean Platelet Volume 10.1 fL (9.1-12.4); Platelet Count 356 K/mm3 (150-400); RDW Coefficient Variation 15.1 % (11.7-14.2); RDW Standard Deviation 47.3 fL (35.1-46.3); Red Blood Cell Count 4.53 M/mm3 (3.80-5.20); White Blood Cell Count 16.14 K/mm3 (4.00-11.30)
[2024-06-07 06:24] LABS: Albumin, Blood 2.2 g/dL (3.4-5.0); Albumin/Globulin Ratio 0.6 (0.8-1.8); Bilirubin, Total 0.4 mg/dL (0.1-1.0); Bun/Creatinine Ratio 35.3 (12.0-20.0); Calcium, Blood 10.7 mg/dL (8.5-10.1); Creatinine, Blood 0.43 mg/dL (0.40-1.00); Globulin, Blood 3.7 g/dL (2.2-4.0); Potassium, Blood 4.4 mmol/L (3.5-5.5); Total Protein, Blood 5.9 g/dL (6.4-8.2)
[2024-06-07 07:38] VITALS: BP 123/77
[2024-06-07] MEDS ORDERED: OxyCODONE 5 mg/Acetamin 325 mg TABLET PO STA (10:42)
[2024-06-07] MEDS ORDERED: OxyCODONE 5 mg/Acetamin 325 mg TABLET PO PRN (11:00)
[2024-06-07] MEDS ORDERED: Polyethylene Glycol 3350 17 gm PO SCH (14:00)
[2024-06-07 14:23] VITALS: BP 141/79
--- NOTE | 2024-06-07 16:14 | NUR ---
ROUNDED WITH PROVIDER. FAMILY PRESENT AND FAMILY ON THE PHONE. DISCUSSED PLAN OF CARE. PATIENT MAY RECIEVE A THORACENTISIS TOMORROW IF APPROPRIATE. PROVIDED THERAPUTIC LISTENING
--- NOTE | 2024-06-07 17:49 | NUR ---
SHIFT SUMMARY: PATIENT A/OX2, CONFUSED AND ANXIOUS AT TIMES, BUT EASILY REDIRECTABLE. PATIENT DENIES CP/PRESSURE, N/V AND DIZZINESS. PATIENT HAS HAD NO EVENTS ON TELE, SR/A-PACED HR IN THE 80'S BPM. PATIENT ON 4L O2 VIA NC, SATTING 89-94%. PATIENT MEDICATED FOR PAIN TO BACK/KNEES PER EMAR c GOOD EFFECT. PATIENT HAS FAIR APPETITE, CONTINENT OF BLADDER, USES [facility] c 1 ASSIST. PATIENT HAS HAD NO BM SINCE 06/01, RECEIVED BOWEL CARE, DR. SMITH IS AWARE OF THIS CONCERNED. PATIENT HAD SHOWER AND LINEN CHANGED TODAY. PLAN TO HAVE THORACENTISIS DONE TOMORROW 06/08/23 PER FLORA RIVERA-KEG WASHER. PATIENT RECEIVED SCHEDULED IV ABX/MEDS PER EMAR. VITAL SIGNS REVIEWED. PATIENT SAT UP IN THE RECLINER CHAIR FOR ABOUT 6 HRS AND CURRENTLY IN CHAIR HAVING DINNER AT THIS TIME. CHAIR ALARM ON FOR SAFETY. CALL LIGHT IN REACH.
[2024-06-07 19:10] VITALS: BP 119/80
[2024-06-08 02:12] VITALS: BP 123/77
--- NOTE | 2024-06-08 04:07 | NUR ---
SHIFT SUMMARY PATIENT IS ALERT AND ORIENTED X2. PATIENT HAS HAD NO ACUTE EVENTS THIS SHIFT. PATIENT HAS BEEN CONFUSED AND VERY ANXIOUS THIS SHIFT. PATIENT HAS BEEN MEDICATED FOR ANXIETY THIS SHIFT. NO EVENTS ON TELE. PATIENT IS ON 5L NC. PATIENT HAS BEEN MEDICATED FOR KNEE AND LEG PAIN THIS SHIFT. PATIENT HAS BEEN CONTINENT THIS SHIFT. PATIENT IS PLANNING ON HAVING THORACENTISIS IN THE AM. PATIENT HAS HAD IV ABX INFUSED ORDERED. VITAL SIGNS REVIEWED. BED ALARM IS ON AND IN LOWEST POSITION. CALL LIGHT IN PLACE.
[2024-06-08 07:54] VITALS: BP 114/102
[2024-06-08 10:04] LABS: Automated BF WBC Count 0.341 K/mm3 (0-999)
[2024-06-08 10:19] LABS: Lactate Dehydrogenase, Body Fl 260 U/L; Protein, Body Fluid 3.6 g/dL
[2024-06-08 10:53] LABS: Body Fluid WBC Count 341 /mm3 (0-999); RBC Count, Body Fluid 570 /mm3 (0-0)
[2024-06-08 11:35] LABS: Total Cell Count, Body Fluid 100
[2024-06-08 11:36] LABS: Appearance, Body Fluid Hazy (Clear); Color, Body Fluid L Yellow (None-Yellow)
[2024-06-08 15:57] VITALS: BP 122/69
--- NOTE | 2024-06-08 18:00 | NUR ---
SHIFT SUMMARY PT A&O TO SELF AND IS PLEASANTLY CONFUSED. PT HAD THOROCENTESIS PERFORMED THIS AM AND XRAY TO FOLLOW. PT TOLERATED INTERVENTION WELL. PT ON 5L O2 VIA N/C OR CPAP DURING SLEEP. VSS, NO COMPLAINTS OF CP/PRESSURE OR SOB. PT SPENT MOST OF SHIFT SITTING UP IN CHAIR. FAMILY AT BEDSIDE DURING PART OF SHIFT. NO ACUTE EVENTS AT THIS TIME. PT REPOSITIONED Q2HRS. PT LEFT IN A POSITION OF SAFETY WITH FALL PRECAUTIONS IN PLACE AND CALL LIGHT INREACH
[2024-06-08 20:15] VITALS: BP 134/81
[2024-06-08] MEDS ORDERED: Morphine Sulfate 4 MG/1 ML Injection IV ONE ×2 (23:20→23:40)
[2024-06-09 04:09] VITALS: BP 118/69
[2024-06-09 05:44] LABS: Hematocrit 38.4 % (33.0-51.0); Hemoglobin 11.2 g/dL (11.5-16.0); Mean Corpuscular HGB 25.2 pg (26.0-34.0); Mean Corpuscular HGB Conc 29.2 g/dL (31.5-36.5); Mean Corpuscular Volume 87 fL (80-100); Mean Platelet Volume 10.2 fL (9.1-12.4); Platelet Count 346 K/mm3 (150-400); RDW Standard Deviation 47.6 fL (35.1-46.3); Red Blood Cell Count 4.44 M/mm3 (3.80-5.20); White Blood Cell Count 14.21 K/mm3 (4.00-11.30)
[2024-06-09 06:08] LABS: Calcium, Blood 11.1 mg/dL (8.5-10.1); Creatinine, Blood 0.45 mg/dL (0.40-1.00); Potassium, Blood 4.7 mmol/L (3.5-5.5)
--- NOTE | 2024-06-09 07:28 | NUR ---
Shift Summary Pt AOx2, fairly lethargic t/o the shift. She had urinary retention early in the shift, bladder scan revealed 541 mL. Straight cathed per bladder jose protocol and removed 850 mL. Pt on 5L NC t/o the night. If NC slipped out of her nose she would desaturate quickly, once she was off O2 for 5 minutes and was down to 69%. On tele, no events. Takes pills one at a time.
[2024-06-09 07:32] VITALS: BP 117/61
[2024-06-09] MEDS ORDERED: PredniSONE 20 MG Tab PO SCH (09:00)
[2024-06-09] MEDS ORDERED: Apixaban 5 MG Tab PO SCH (09:00)
--- NOTE | 2024-06-09 14:30 | NUR ---
ASSESSED PATIENT. DISCUSSED CASE WITH AUTOMOTIVE UPHOLSTERER AND GSE MECHANIC. PATIENT WAS WORKING WITH OT UPON MY ROUNDS. SHE IS STILL CONFUSED AT THIS TIME. ACCORDING TO BEDSIDE BOBTAIL DRIVER WAS NOT PRESENT DURING DOCTOR ROUNDS. RELAYED CONVERSATION I HAD WITH FAMILY TO SOCAL WORKER, GSE MECHANIC AND TO OT.
[2024-06-09 16:20] VITALS: BP 117/98
--- NOTE | 2024-06-09 19:21 | NUR ---
PT ALERT AND ORIENTED X 4, BUT IMPULSIVE AND HAS PERIODS OF CONFUSION. PT UP IN CHAIR MOST OF SHIFT. 1PA TO BSC TO URINATE. VSS, 5L O2, HIGH FLOW NC, CONT PULSE OX O2 SATS IN LOW 90S, DIP TO HIGH 80S WITH ACTIVITY. PT REPEATEDLY TRIED TO GET OUT OF BED AND OUT OF THE CHAIR, EDUCATED ON CALLING FOR SAFETY. CALL LIGHT IN REACH, CHAIR ALARM IN PLACE.
[2024-06-09 21:05] VITALS: BP 107/62
[2024-06-10 04:47] VITALS: BP 123/75
--- NOTE | 2024-06-10 05:11 | NUR ---
Pt A&O x2, she knew who she was and sometimes knew where she was, at times she was delusional, thinking that she needed to go find her sister even though her sister is . Pt VS WNL, UOP WNL, up to BSC often, meal intake poor for dinner, fluid intake WNL. Pt remains on IVABX. tele still A-paced at 60, O2 at 6L per HFNC, and only wore BIPAP for approximately 2 hrs. CBG 149 and recieved no coverage. Pt has pain in back usually if lying flat. continues to recieve neb tx's, L/S still remain decreased with occasional expritory wheezing. Awaiting Pallative consult.
[2024-06-10 07:40] VITALS: BP 116/70
[2024-06-10 15:04] VITALS: BP 108/59
--- NOTE | 2024-06-10 18:56 | NUR ---
SHIFT SUMMARY PATIENT ALERT AND ORIENTED X1-3 THIS SHIFT WITH INTERMITTENT CONFUSION AND DISORIENTATION. PATIENT EASY TO REORIENT. ANXIOUS THIS MORNING, PRN HYDROXIZINE ADMINISTERED PER MAR. SISTER IN LAW, NELSON, AT BEDSIDE ADN UPDATED ON PATIENT STATUS AND PLAN FOR KEYPUNCHER CARE AT DISCHARGE. TELEMETRY IN PLACE, NO EVENTS NOTED THIS SHIFT. PATIENT WITH URINARY FREQUENCY, CONTINENT OF URINE. ANTIBIOTICS INFUSED PER MAR. CONTINUES WITH 5 LPM OXYGEN VIA NASAL CANNULA, SPO2 WNL. CONTINUOUS PULSE OX IN PLACE. NO OTHER CONCERNS AT THIS TIME.
[2024-06-10 20:12] VITALS: BP 120/70
--- NOTE | 2024-06-11 03:17 | NUR ---
SHIFT SUMMARY @HS PT AGITATED, ASSISTED FROM RECLINER TO BED PER PT REQUEST. 1-PERSON ASSIST. A/O X2, SELF AND PERSON. UNABLE TO REDIRECT/REORIENT AT THAT TIME. PT REFUSED HS SCHEDULED PO MEDICATIONS, CONFUSED AND ARGUMENTATIVE. PT VOCALIZED C/O LE BILATERAL PAIN. @2350 AFTER A NAP, PT AGREEABLE TO TAKE PO MEDICATIONS. ADMINISTERED ORDERED WITH PRN PERCOCET AND PRN TRAZADONE. O2 @4-5L VIA NASAL CANNULA. HOB>45 DEGREES. RT BY THE BEDSIDE, PT AGREEABLE TO USE BIPAP DURING NIGHT HRS. CONTINUOUS PULSE OXIMETER SAT'S>95%. HS B. TELE: A-PACED @68. NO ACUTE DISTRESS/EVENTS NOTED/REPORTED DURING THIS SHIFT. BED AT THE LOWEST POSITION, CALL LIGHT W/I REACH. PT IS ABLE TO MAKE HER NEEDS KNOWN.
[2024-06-11 04:19] VITALS: BP 130/84
[2024-06-11 07:40] VITALS: BP 126/63
--- NOTE | 2024-06-11 14:40 | NUR ---
"Spiritual Care Attempted | Nurse Request Pt. is soundly resting. Family member is at bedside and welcmoes this director of staff development to return at a later time."
--- NOTE | 2024-06-11 15:31 | NUR ---
Spiritual Care Visit - 2 Pt Pt.-1 Pt is awake and sitting in a chair. TIBURCIO Ileana is present. Facilitated a life review as I introduced myself to the Pt. Pt. verbalized that she is a member of [employer]. COnsidered matters of jhoana and belief as I listened with interest and empathy. Pt. displayed some confusion, but also displayed evidence of encouragement. Prayed with Pt. Pt. verbalized graititude for the spiritual care visit and welcomed this veterinary attendant to return. Pt. - Soon afterward, I spent some time with the Pts. TIBURCIO in the waiting area. The DIL is known to this veterinary attendant form the community and from previous hospital stays. Through theraputic listening and pastoral care DIL displayed evidence of being encouraged and verbalized gratitude for the spiritual care that was given.
[2024-06-11 15:39] VITALS: BP 111/85
--- NOTE | 2024-06-11 17:58 | NUR ---
SPOKE WITH DADA SANTACRUZ) ON THE PHONE. SHE INQUIRED ABOUT THORACENTISIS AND ADDITIONAL FOLLOW UP IMAGING TO EVALUATE FUTURE NEED OF THORA. EDUCATED THAT THERE IS NO NEED FOR FOLLOW UP IMAGING AT THIS TIME. PROVIDER WILL CONTINUE TO MONITOR AND IF PATIENT FOR CLINICAL CHANGES. NEDA VERBALIZED UNDERSTANDING THAT CLINICAL TESTING WILL BE ORDERED APPROPRIATE. NEDA REQUEST FOR OUTPATIENT PALLIATIVE CARE CONSULT, RELAYED REQUEST TO BO IN CARE COORDINATION.
--- NOTE | 2024-06-11 18:48 | NUR ---
SHIFT SUMMARY: PATIENT A&OX1-2; VERY CONFUSED, HARD TO REDIRECT, DIFFICULTY FOLLOWING INSTRUCTIONS. SHE CONTINUES TO BE ON 3-6 L OF O2. SHE IS IN HER BEDSIDE CHAIR, EATING DINNER, CALL LIGHT AND CHAIR ALARM IN PLACE, NO SIGNS OR SYMPTOMS OF DISTRESS, PLAN OF CARE ONGOING.
[2024-06-11 19:38] VITALS: BP 120/73
--- NOTE | 2024-06-12 03:53 | NUR ---
SHIFT SUMMARY PT IS CONFUSED, A&O X2. 1-2 PERSON ASSIST TO THE COMMODE WITH GAITBELT AND FWW. MEDICATED PER EMAR FOR LE BILATERAL PAIN (FACE SCALE 8) PER PT REQUEST. EFFECTIVE. O2 @5-6L, CONTINUOUS PULSE OXIMETER SAT'S LOW 90'S. EASILY DE-SATTING TO 85-87% ON 6 LITERS VIA NASAL CANNULA. BIPAP FOR FEW HRS DURING THE NIGHT. TELE: A-PACED 68. HS B. NO ACUTE EVENTS/DISTRESS NOTED/REPORTED DURING THIS SHIFT. BED AT THE LOWEST POSITION, CALL LIGHT WITHIN REACH. BED ALARM FOR SAFETY. PT IS ABLE TO MAKE HER NEEDS KNOWN, CALLS OUT T/O THIS SHIFT.
[2024-06-12 04:13] VITALS: BP 124/81
[2024-06-12 06:09] LABS: Bun/Creatinine Ratio 38.4 (12.0-20.0); Calcium, Blood 11.1 mg/dL (8.5-10.1); Creatinine, Blood 0.39 mg/dL (0.40-1.00); Potassium, Blood 4.7 mmol/L (3.5-5.5)
[2024-06-12 07:10] VITALS: BP 134/67
[2024-06-12] MEDS ORDERED: PredniSONE 10 MG Tab PO SCH (09:00)
--- NOTE | 2024-06-12 11:48 | NUR ---
"Spiritual Care Visit | 2-nurse request Pt. is awake and sitting in a chair. Pt. is pleasant but displays evidence of being reserved in her interaction. Listen with patience, empathy and a calming presence. Pt. verbalized a request that I contact her nondenominational [facility] Prayed with Pt. Will remain available to Pt. and will attempt to contact her nondenominational."
--- NOTE | 2024-06-12 14:05 | NUR ---
PATIENT PLACED ON BIPAP AT 1335 DUE TO DESATURATION (83-85%) OF OXYGEN ON HIGH FLOW NASAL CANNULA 6 L; PATIENT PLACED ON BIPAP RECOVERED TO 90-91% AND IS ASLEEP. NO SIGNS OR SYMPTOMS OF DISTRESS, CALL LIGHT WITHIN REACH, CHAIR ALARM IN PLACE.
[2024-06-12 16:34] VITALS: BP 119/103
--- NOTE | 2024-06-12 17:08 | NUR ---
PATIENT APPEARS MORE CONFUSED TODAY. DISCUSSED CASE WITH DR. HAMEED. UPDATED ON FAMILY DYNAMIC AND GOALS. CT ORDERED. UNCLEAR IF CANCER MAY HAVE SPREAD, OR THAT PATIENT IS STILL CONFUSED DUE TO STEROIDS. PATIENT HAS BEEN ACCEPTED TO A PROJECT TECHNICIAN CARE FACILITY AND WAITING FOR PROJECT TECHNICIAN INSURANCE.
--- NOTE | 2024-06-12 17:39 | NUR ---
SHIFT SUMMARY: PATIENT'S ORIENTATION WAS BETTER THIS MORNING, BUT DECLINED THROUGHOUT THE SHIFT AND PATIENT CONTINUES TO BE CONFUSED AND DIFFICULT TO REDIRECT/FOLLOWING INSTRUCTIONS. PATIENT MAKING STATEMENTS THAT ARE INCOHERENT OR DON'T MAKE SENSE. SEE NURSES NOTE ON NEED FOR BIPAP PLACEMENT THIS AFTERNOON. PATIENT WORE FOR 3.5 HOURS (TOOK A NAP) WAS ABLE TO SWITCH BACK TO HIGH FLOW N/C OXYGEN AND ABLE TO MAINTAIN PROFICIENT OXYGEN SATURATION ABOVE 88% ON 6 L. ACCOMPANIED PATIENT DOWN TO IMAGING FOR HER HEAD CT AND CHEST XRAY. PATIENT BACK IN ROOM, IN BED, CALL LIGHT IN REACH, BED ALARM ON, NO SIGNS OR SYMPTOMS OF DISTRESS, DR. HAMEED REVIEWED HEAD CT RESULTS, PLAN OF CARE ONGOING.
[2024-06-12 19:31] VITALS: BP 131/72
[2024-06-13] MEDS ORDERED: HyDROXyzine HCl 10 MG Tab PO PRN (01:20)
--- NOTE | 2024-06-13 01:56 | NUR ---
NEW T-ORDER FROM THE ON-CALL HOSPITALIST : CHANGE HYDROXYZINE 10MG Q8HRS PRN PO TO: HYDROXYZINE 25MG Q6HRS PRN PO. ENTERED TO [employer], SEE EMAR. NO ADDITIONAL NEW ORDERS AT THIS TIME.
--- NOTE | 2024-06-13 03:07 | NUR ---
SHIFT SUMMARY PT IS A/O X1-2, CONFUSED, CALLS OUT YELLING, ALL NEEDS MET. RT BY THE BEDSIDE, SET UP V-60 FOR FEW HRS. PT GETS PANICKY WANTING THE O2 MASK OFF. NEW ORDER RECEIVED FROM THE ON-CALL HOSPITALIST FOR HYDROXYZINE 25MG PO PRN QHRS. ADMINISTERED AROUND MIDNIGHT WITH PRN TYLENOL PO. EFFECTIVE. PT WAS SWITCHED TO NASAL CANNULA, 6L, SAT'S>98%. PT C/O LE BILATERAL PAIN, MEDICATED PER EMAR. PT APPEARS RELAXED AFTER HYDROXYZZINE 25MG AND TYLENOL 650MG ADMINISTERED. NO ACUTE EVENTS DURING THIS SHIFT. BED AT THE LOWEST POSITION, CALL LIGHT WITHIN REACH. PT ABLE TO MAKE HER NEEDS KNOWN AND COOPERATIVE WITH CARE.
[2024-06-13 04:25] VITALS: BP 108/65
[2024-06-13 07:36] VITALS: BP 138/69
[2024-06-13 15:05] VITALS: BP 102/80
--- NOTE | 2024-06-13 17:35 | NUR ---
Met with pt today, she slept on and off through the visit. She was pleasantly confused, but suprisingly able to answer a couple questions appropriately. She is unable to retain information. Spoke with her sister in law Ileana by phone, and she is the patient's decision-maker. She states the patient would not want any further cancer treatments; she made it clear to Ileana when she was still alert and oriented this summer. Plan for meeting tomorrow with this RN, Ileana, patient and Dr. Panda, as Ileana requests the physician tell the patient she does have cancer, only once. Given her memory, it wouldn't be prudent or therapeutic to tell her consistently. Most likely transition to hospice tomorrow.
--- NOTE | 2024-06-13 18:21 | NUR ---
SHIFT SUMMARY: PATIENT CONTINUES TO BE CONFUSED AND DECLINING, RESPIRATORY EFFORTS WORSENING; TACHYPNEIC AND REQUIRING V60 BIPAP AND CONTINUED 6 L NASAL CANNULA OXYGEN; PT HAS VOICED "I CAN'T BREATHE" THROUGHOUT THE DAY, THAT SHE DOESN'T FEEL WELL, "I'M GETTING WORSE" SHE ALSO STATED THIS EVENING "I WANT YOU TO SHOOT ME, I DON'T WANT TO LIVE ANYMORE" PALLATIVE CARE CALLED. PATIENT IN BED, ALERT, NO SIGNS OR SYMPTOMS OF DISTRESS, CALL LIGHT WITHIN REACH, BED ALARM SET, PLAN OF CARE ONGOING.
[2024-06-13 20:36] VITALS: BP 91/65
[2024-06-14 04:08] VITALS: BP 140/72
--- NOTE | 2024-06-14 04:39 | NUR ---
SHIFT SUMMARY; PATIENT SLEPT IN LONG INTERVALS, WAS UNABLE TO VOID, BLADDER SCAN FOR 900ML. HOSPITALIST CONTACTED AND ORDER TO INSERT INDWELLING STORY SINCE SHE IS BECOMING A COMFORT CARE PATIENT LATER TODAY. GIVEN ALL PRN MEDS I COULD GIVE HER AT HS. DID NOT NEED INSULIN COVERAGE.
[2024-06-14 07:42] VITALS: BP 120/65
[2024-06-14] MEDS ORDERED: LORazepam 1 MG Tab PO PRN (12:05)
[2024-06-14] MEDS ORDERED: Morphine Sulfate 20 MG/1ML 1 ML Oral Syringe SL PRN (12:05)
[2024-06-14] MEDS ORDERED: Scopolamine Hydrobromide Patch TOP PRN (12:05)
[2024-06-14] MEDS ORDERED: LORazepam 2 MG/ML 1ML Injection IV PRN (12:05)
--- NOTE | 2024-06-14 12:59 | NUR ---
Pt placed on comfort care, she is transitioning. Had meeting planned with pt and sister in law Tejeda. Upon entering the room, noted the patient's breathing has changed; her breathing is noisy and moist, and breathing with mouth agape and shallow. Sister in law Tejeda recognizes the patient's condition and agreed immediately to comfort care. Dr. Panda arrives, ordered comfort care for her. Meds given, pt now appears relaxed and comfortable. Ileana remains at pt's side, and Ileana's daughter is driving down from [place] now. Palliative will remain available for support and assist with symptoms as needed.
--- NOTE | 2024-06-14 20:02 | NUR ---
PT TRANSITIONED TO COMFORT CARE. SISTER AND NIECE AT BEDSIDE. PT OPENS EYES TO VERBAL STIMULI. SEE COMFORT CARE NOTES.
== END 2024-06-15 01:00 | DRG 871 ==
LOC: ER 13:55 → PCU 16:54 → MEDS 16:54 → PCU 05-31 16:19 → MEDS 06-02 13:31
PROVIDERS: Family Medicine; Internal Medicine; Nurse Practitioner Acute Care; Student in an Organized Health Care Education/Training Program; ADMIT Family Medicine
PROC: 5A09557 Assistance with Respiratory Ventilation, Greater than 96 Consecutive Hours, Continuous Positive Airway Pressure (ICD-10-PCS; principal; 2024-05-30)
PROC: 3E03329 Introduction of Other Anti-infective into Peripheral Vein, Percutaneous Approach (ICD-10-PCS; 2024-05-30)
PROC: 4A033R1 Measurement of Arterial Saturation, Peripheral, Percutaneous Approach (ICD-10-PCS; 2024-06-07)
PROC: 0W993ZZ Drainage of Right Pleural Cavity, Percutaneous Approach (ICD-10-PCS; 2024-06-08)
DX: A41.9 Sepsis, unspecified organism (principal); G93.41 Metabolic encephalopathy; R65.21 Severe sepsis with septic shock; J69.0 Pneumonitis due to inhalation of food and vomit; J96.21 Acute and chronic respiratory failure with hypoxia; J96.22 Acute and chronic respiratory failure with hypercapnia; J18.9 Pneumonia, unspecified organism; C34.91 Malignant neoplasm of unspecified part of right bronchus or lung; C79.51 Secondary malignant neoplasm of bone; E87.1 Hypo-osmolality and hyponatremia; I48.20 Chronic atrial fibrillation, unspecified; J91.0 Malignant pleural effusion; J44.1 Chronic obstructive pulmonary disease with (acute) exacerbation; J44.0 Chronic obstructive pulmonary disease with (acute) lower respiratory infection; Z51.5 Encounter for palliative care; Z66 Do not resuscitate; F43.10 Post-traumatic stress disorder, unspecified; I48.91 Unspecified atrial fibrillation; E87.5 Hyperkalemia; I25.10 Atherosclerotic heart disease of native coronary artery without angina pectoris; F31.9 Bipolar disorder, unspecified; R73.9 Hyperglycemia, unspecified; T38.0X5A Adverse effect of glucocorticoids and synthetic analogues, initial encounter; Z88.0 Allergy status to penicillin; Z88.2 Allergy status to sulfonamides; Z88.8 Allergy status to other drugs, medicaments and biological substances; Z79.01 Long term (current) use of anticoagulants; Z79.1 Long term (current) use of non-steroidal anti-inflammatories (NSAID); Z79.899 Other long term (current) drug therapy; Z87.891 Personal history of nicotine dependence
CPT/HCPCS: 0202U; 32555; 36415; 36416; 36600; 70470; 71045; 71046; 71260; 80048; 80053; 80178; 82803; 82947; 83605; 83615; 83735; 83880; 84132; 84145; 84157; 84443; 84484; 85025; 85027; 85379; 85610; 85730; 87040; 87070; 87075; 87205; 87633; 88108; 88305; 88341; 88342; 89051; 93005; 93010; 94640; 94660; 94664; 94760; 94762; 97110; 97116; 97162; 97165; 97530; 97535; 99285-25; A9270; J0456; J0696; J1815; J2060; J2405; J2919; J7030; J7050; J7512; Q9967